=== PATIENT | male | born 1975 ===

== ENCOUNTER 2017-01-16 11:52 | Inpatient (IN) | payer OTHER ==
[2017-01-16 12:11] VITALS: BMI 38.4
--- NOTE | 2017-01-16 12:28 | C.PDOC ---
History Of Present Illness 41 year old patient, with a past medical history of asthma, CAD, hypertension, depression, and anxiety, presents to the ED complaining of intermittent chest pain for the last couple of days. Patient states the pain is radiaitng to his left arm. Patient denies having any exacerbating factors. Patient also complains of intermittent shortness of breath and some nausea. He notes this pain is similar to his previous [place]. Patient denies fever, chills, palpitations, numbness, weakness, or vomiting. Time Seen by Provider: 01/16/17 12:28 Chief Complaint (Nursing): Chest Pain History Per: Patient History/Exam Limitations: no limitations Onset/Duration Of Symptoms: Days (couple of days) Current Symptoms Are (Timing): Still Present Context: Other Severity: Mild Pain Scale Rating Of: 3 Quality: "Pain" Associated Symptoms: Nausea Exacerbating Factors: None Alleviating Factors: None Recent travel outside of the [place]: No Past Medical History Reviewed: Historical Data, Nursing Documentation, Vital Signs Vital Signs: Last Vital Signs Temp 97.7 F 01/17/17 16:57 Pulse 65 01/17/17 16:57 Resp 20 01/17/17 16:57 BP 124/74 01/17/17 17:35 Pulse Ox 95 01/17/17 16:57 - Medical History PMH: Anxiety, Asthma, CAD, Depression, HTN - [facility] Procedures CORONAR ARTERIOGR-2 CATH (03/12/15) CORONARY ARTERIOGRAM NEC (03/16/15) LEFT HEART CARDIAC CATH (03/12/15) LT HEART ANGIOCARDIOGRAM (03/12/15) Family History: States: Unknown Family Hx - Social History Hx Tobacco Use: Yes (half pack daily) Hx Alcohol Use: No Hx Substance Use: No - Immunization History Hx Tetanus Toxoid Vaccination: Yes Hx Influenza Vaccination: Yes Hx Pneumococcal Vaccination: Yes Review Of Systems Except As Marked, All Systems Reviewed And Found Negative. Constitutional: Negative for: Fever, Chills Cardiovascular: Positive for: Chest Pain. Negative for: Palpitations Respiratory: Positive for: Shortness of Breath Gastrointestinal: Positive for: Nausea. Negative for: Vomiting Musculoskeletal: Positive for: Arm Pain (left arm) Neurological: Negative for: Weakness, Numbness Physical Exam - Physical Exam Appears: Non-toxic, No Acute Distress Skin: Warm, Dry Head: Atraumatic, Normacephalic Oral Mucosa: Moist Neck: Normal ROM, Supple Chest: Symmetrical Cardiovascular: Rhythm Regular Respiratory: Normal Breath Sounds, No Rales, No Rhonchi, No Wheezing Gastrointestinal/Abdominal: Soft, No Tenderness Back: Normal Inspection, No CVA Tenderness Extremity: Normal ROM Neurological/Psych: Oriented x3, Normal Speech, Normal Cognition, Normal Motor, Normal Sensation Gait: Steady ED Course And Treatment - Laboratory Results Result Diagrams: 01/17/17 11:26 01/17/17 11:26 O2 Sat by Pulse Oximetry: 98 (room air) Pulse Ox Interpretation: Normal Medical Decision Making Medical Decision Making: Plan: * EKG * Labs * Chest x-ray * Aspirin EKG: Interpreted by me Normal sinus rhythm 70 bpm Left axis deviation No acute ischemia Chest x-ray Read by Radiologist: Judy Martinez MD HISTORY: cp COMPARISON: Chest x-ray performed 03/13/16 TECHNIQUE: Chest, one view. FINDINGS: Examination limited by habitus and hypoinflation. LUNGS: No focal consolidation. Please note that chest x-ray has limited sensitivity for the detection of pulmonary masses. PLEURA: No significant pleural effusion identified. No definite pneumothorax . CARDIOVASCULAR: Heart size appears top normal. OSSEOUS STRUCTURES: No acute osseous abnormality identified. VISUALIZED UPPER ABDOMEN: Unremarkable. OTHER FINDINGS: None. IMPRESSION: No focal consolidation, significant pleural effusion, or definite pneumothorax identified. Disposition - Disposition Disposition: HOSPITALIZED Disposition Time: 14:49 Condition: STABLE - Clinical Impression Clinical Impression: Chest pain - Scribe Statement The provider has reviewed the documentation as recorded by the Nicholeibe Lizbet Horton Provider Attestation: All medical record entries made by the Nicholeibjohn were at my direction and personally dictated by me. I have reviewed the chart and agree that the record accurately reflects my personal performance of the history, physical exam, medical decision making, and the department course for this patient. I have also personally directed, reviewed, and agree with the discharge instructions and disposition.
--- NOTE | 2017-01-16 12:50 | RAD ---
HISTORY: cp COMPARISON: Chest x-ray performed 03/13/16 TECHNIQUE: Chest, one view. FINDINGS: Examination limited by habitus and hypoinflation. LUNGS: No focal consolidation. Please note that chest x-ray has limited sensitivity for the detection of pulmonary masses. PLEURA: No significant pleural effusion identified. No definite pneumothorax . CARDIOVASCULAR: Heart size appears top normal. OSSEOUS STRUCTURES: No acute osseous abnormality identified. VISUALIZED UPPER ABDOMEN: Unremarkable. OTHER FINDINGS: None. IMPRESSION: No focal consolidation, significant pleural effusion, or definite pneumothorax identified.
[2017-01-16 13:28] LABS: CHLORIDE 102 mmol/L (98-107)
[2017-01-16 13:29] LABS: POTASSIUM 4.2 mmol/L (3.6-5.2); SODIUM 136 mmol/L (132-148)
[2017-01-16 13:31] LABS: ALB/GLOB RATIO 1.2 (1.0-2.1); ALKALINE PHOSPHATASE 71 U/L (38-126); AST/SGOT 33 U/L (17-59); BILIRUBIN,TOTAL 0.6 mg/dL (0.2-1.3); BLOOD UREA NITROGEN 11 mg/dL (9-20); CARBON DIOXIDE 22 mmol/L (22-30); GFR AFRICAN-AMERICAN > 60; TOTAL PROTEIN 7.1 g/dL (6.3-8.3)
[2017-01-16 13:32] LABS: ALT/SGPT 24 U/L (21-72); GLUCOSE,RANDOM 115 mg/dL (75-110)
[2017-01-16 14:06] LABS: BASO # 0.1 K/uL (0.0-0.2); BASO % 0.9 % (0.0-2.0); EOS # 0.6 K/uL (0.0-0.7); EOS % 4.1 % (0.0-4.0); HEMATOCRIT 48.9 % (35.0-51.0); LYMPH # 4.1 K/uL (1.0-4.3); LYMPH % 27.4 % (20.0-40.0); MEAN CELL VOLUME 84.6 fL (80.0-94.0); MEAN CORPUSCULAR HEMOGLOBIN 28.6 pg (27.0-31.0); MEAN CORPUSCULAR HGB CONC 33.8 g/dL (33.0-37.0); MEAN PLATELET VOLUME 8.1 fL (7.2-11.7); MONO # 1.1 K/uL (0.0-0.8); MONO % 7.6 % (0.0-10.0); RED CELL DISTRIBUTION WIDTH 13.6 % (11.5-14.5); WHITE BLOOD COUNT 14.9 K/uL (4.8-10.8)
--- NOTE | 2017-01-16 15:48 | CP.PCM.HP ---
<Derik Carvalho - Last Filed: 01/16/17 16:06> History of Present Illness - History of Present Illness History of Present Illness: This is a 41 yo male with past medical hx of HTN, DM, CAD, HLD, CA presenting with chest pain x 2-3 days. Pain was getting worse in intensity and pain began radiating to jaw and left arm so that is why pt came in today. He rates it 6/10 , similar to pain he has had in past when he had CA. He describes it as pressure sensation. Pain is constant. He had cardiac cath in past but did not have stent placed due to technical issue. He doesn't say anything makes it worse , but the medicine he got in ER has made it somewhat better. He denies fevers, chills, nausea vomiting, cough, dysuria, hematuria, abdominal pain, diarrhea, constipation, hematochezia. PMH: DM, HTN, HLD, CAD PSH: Cardiac cath Allergies: NKDA Current meds: metformin, januvia, atenolol, losartan, lipitor FH: Denies Social hx: Current smoker- 7-10 cigs/day. No drinking. No drugs. Lives with mother. Present on Admission - Present on Admission Any Indicators Present on Admission: No History of DVT/PE: No History of Uncontrolled Diabetes: No Urinary Catheter: No Decubitus Ulcer Present: No Review of Systems - Review of Systems All systems: reviewed and no additional remarkable complaints except Review of Systems: negative except per hpi. Past Patient History - Infectious Disease Hx of Infectious Diseases: None - Tetanus Immunizations Tetanus Immunization: Unknown - Past Medical History & Family History Past Medical History?: Yes Past Family History: Reviewed and not pertinent - Past Social History Smoking Status: Light Smoker < 10 Cigarettes Daily Chewing Tobacco Use: No Cigar Use: No Alcohol: None Drugs: Denies Home Situation {Lives}: With Family Domestic Violence: Negative - CARDIAC Hx Hypertension: Yes - PULMONARY Hx Asthma: Yes - NEUROLOGICAL Hx Neurological Disorder: No - HEENT Hx HEENT Problems: No - RENAL Hx Chronic Kidney Disease: No - ENDOCRINE/METABOLIC Hx Endocrine Disorders: Yes Hx Diabetes Mellitus Type 2: Yes - HEMATOLOGICAL/ONCOLOGICAL Hx Blood Disorders: No - INTEGUMENTARY Hx Dermatological Problems: No - MUSCULOSKELETAL/RHEUMATOLOGICAL Hx Falls: No - GASTROINTESTINAL Hx Gastrointestinal Disorders: No - GENITOURINARY/GYNECOLOGICAL Hx Genitourinary Disorders: No - PSYCHIATRIC Hx Anxiety: Yes Hx Depression: Yes Hx Substance Use: No - SURGICAL HISTORY Hx Surgeries: Yes Hx Cardiac Catheterization: Yes (last week) Other/Comment: foot surgery (due to accident at 12 yrs old) - ANESTHESIA Hx Anesthesia: Yes Hx Anesthesia Reactions: No Hx Malignant Hyperthermia: No Meds Allergies/Adverse Reactions: Allergies Allergy/AdvReac Type Severity Reaction Status Date / Time pollen extracts Allergy Verified 01/16/17 12:10 Physical Exam - Constitutional Appears: Non-toxic, No Acute Distress - Head Exam Head Exam: ATRAUMATIC, NORMAL INSPECTION, NORMOCEPHALIC - Eye Exam Eye Exam: EOMI - ENT Exam ENT Exam: Mucous Membranes Moist - Neck Exam Neck exam: Positive for: Full Rom Additional comments: Minimal jvd - Respiratory Exam Respiratory Exam: NORMAL BREATHING PATTERN. absent: Respiratory Distress - Cardiovascular Exam Cardiovascular Exam: REGULAR RHYTHM, +S1, +S2 - GI/Abdominal Exam GI & Abdominal Exam: Normal Bowel Sounds, Soft. absent: Tenderness - Extremities Exam Extremities exam: Positive for: full ROM, normal inspection - Back Exam Back exam: NORMAL INSPECTION - Neurological Exam Neurological exam: Alert, CN II-XII Intact, Oriented x3 - Psychiatric Exam Psychiatric exam: Normal Affect, Normal Mood - Skin Skin Exam: Dry, Intact, Normal Color, Warm Results - Vital Signs Recent Vital Signs: Last Vital Signs Temp 98.4 F 01/16/17 12:17 Pulse 76 01/16/17 12:58 Resp 16 01/16/17 12:58 BP 122/77 01/16/17 12:58 Pulse Ox 98 01/16/17 13:43 - Labs Result Diagrams: 01/16/17 13:57 01/16/17 13:11 Assessment & Plan - Assessment and Plan (Free Text) Assessment: This is a 41 yo male with past medical hx of DM, HTN, HLD, CAD presenting with cc of chest pain 1. Unstable angina -morphine 2 mg IV q 3 hrs prn pain -o2 by nasal cannula -trops x 3, 1st one negative -cardio consult. Dr. Sutherland. reckatrin appreciated. -asa 81 daily -therapeutic lovenox -restart home lipitor -continue home atenolol -continue home losartan -TSH/T3/T4 -BNP pending -CXR pa/lateral pending -EKG shows NSR, poor r wave progression, no st elevations, depressions 2. Hx of HTN -continue home atenolol -continue losartan 3. hx of DM -ISS -HGB A1C 4. Hx of HLD -continue home lipitor -lipid profile 5. GI/DVT ppx -protonix daily -lovenox 118 mg sc bid discussed with Dr. Acosta <Rob Acosta - Last Filed: 01/17/17 08:50> Results - Vital Signs Recent Vital Signs: Last Vital Signs Temp 97.9 F 01/17/17 00:00 Pulse 68 01/17/17 04:00 Resp 20 01/17/17 00:00 BP 116/72 01/17/17 00:00 Pulse Ox 96 01/17/17 00:00 - Labs Result Diagrams: 01/16/17 13:57 01/16/17 13:11 Labs: Laboratory Results - last 24 hr 01/16/17 01/16/17 01/16/17 17:29 17:29 17:29 PT INR APTT D-Dimer, Quantitative POC Glucose (mg/dL) Troponin I < 0.0120 NT-Pro-B Natriuret Pep 213 Procalcitonin < 0.05 L Free T4 Total T3 2.42 TSH 3rd Generation 1.22 01/16/17 01/16/17 01/16/17 17:29 17:43 18:23 PT 11.8 INR 1.0 APTT 32 D-Dimer, Quantitative Cancelled POC Glucose (mg/dL) 102 Troponin I NT-Pro-B Natriuret Pep Procalcitonin Free T4 0.86 Total T3 TSH 3rd Generation 01/16/17 01/17/17 01/17/17 21:17 01:20 04:22 PT INR APTT D-Dimer, Quantitative < 200 POC Glucose (mg/dL) 147 H Troponin I < 0.0120 NT-Pro-B Natriuret Pep Procalcitonin Free T4 Total T3 TSH 3rd Generation 01/17/17 06:34 PT INR APTT D-Dimer, Quantitative POC Glucose (mg/dL) 130 H Troponin I NT-Pro-B Natriuret Pep Procalcitonin Free T4 Total T3 TSH 3rd Generation Attending/Attestation - Attestation I have personally seen and examined this patient.: Yes I have fully participated in the care of the patient.: Yes I have reviewed all pertinent clinical information: Yes Notes (Text): 01/17/17 08:47 Medical Attending: Patient was seen and examined by me. Agree with the above note by the resident. Patient does have an extensive cardiac history as well as risk factors including : HTN, DM, and is an active smoker despite his history of CA at earlier age. Will check ECHO and also additional cardiac enzymes. The patient will need to be on statin, ASA, HTN medicatiom, and for now will start lovenox BID Rob acosta
--- NOTE | 2017-01-16 16:40 | CP.PCM.CON ---
Addendum entered and electronically signed by CassiaMadisyn, DO 01/16/17 17:37 : Pending BNP Will give lasix 40 iv bid Echo pending Obtain D-dimer, coags Consider pulm consult S/R/D/w Dr. Sutherland Original Note: <CassiaMadisyn - Last Filed: 01/16/17 17:23> History of Present Illness - History of Present Illness History of Present Illness: PGY-[address] Sutherland Cardiology Consult: 41 yo male, active smoker, with PMHx of HTN, HLD, DM, IL/CAD, triple vessel disease s/p PCI, COPD/Asthma, presenting with chest pain x 2-3 days. Pt recently started to exercises by walking a mile a day x 5 days/week. No chest pain on exertion but (+) SOB on exertion. This weekend, while pt was at rest, he had several episodes of chest pain, 4/10 , pressure-like, @ episodes lasting about 2 hrs. This AM, the pain was getting worse in intensity, 6/10, and radiates to jaw and left arm, associated with diaphoresis, nausea and dyspnea. The pain was similar to the pain he has had in past when he had IL. Message, reposition, failed to alleviates it. He had cardiac cath in past but did not have stent placed due to technical issue. He was scheduled for open heart CABG but required total tooth extraction , which insurance denied. Then pt traveled out of [facility] to [place], [place], and seen a sales account associate there who would re-attempt PCI but pt lost insurance again. At baseline, pt denies swelling. Pt uses 2 pillows, able to walk 3 flight of stairs, eat healthy. On ER arrival, VSS WBC = 15. GFR > 60. LFT wnl. BNP pending. Trop negative x 1. EKG: NS @ 73. L axis deviation. TWI in III, q wave in aVR (QTc 475) CXR (noon, 4pm) mild venous encephalization. fluid overload ASA 325 given at ED has made it somewhat better. ROS - Denies fevers, chills, nausea vomiting, cough, dysuria, hematuria, abdominal pain, diarrhea, constipation, hematochezia. PMH: CAD (triple vessel) - LAD (100% stenose), L-cir (obtuse marginal 98% stenose), RCA (dominant, mid=60%; PDA mid=95% stenose) DM x 3 years HTN, HLD, Asthma/COPD PSH: Foot surgery as child Cardiac cath (02/2015) FH: Mom with asthma Social hx: Current smoker- 1/2ppd x 26 yrs. No drinking. No drugs. Lives with mother. Allergies: NKDA. Pollen Current meds: ASA 81, metformin, januvia, atenolol, losartan, lipitor PMD: Dr. Magda Scott Past Patient History - Infectious Disease Hx of Infectious Diseases: None - Tetanus Immunizations Tetanus Immunization: Unknown - Past Medical History & Family History Past Medical History?: Yes Past Family History: Reviewed and not pertinent - Past Social History Smoking Status: Light Smoker < 10 Cigarettes Daily Chewing Tobacco Use: No Cigar Use: No Alcohol: None Drugs: Denies Home Situation {Lives}: With Family Domestic Violence: Negative - CARDIAC Hx Hypertension: Yes - PULMONARY Hx Asthma: Yes - NEUROLOGICAL Hx Neurological Disorder: No - HEENT Hx HEENT Problems: No - RENAL Hx Chronic Kidney Disease: No - ENDOCRINE/METABOLIC Hx Endocrine Disorders: Yes Hx Diabetes Mellitus Type 2: Yes - HEMATOLOGICAL/ONCOLOGICAL Hx Blood Disorders: No - INTEGUMENTARY Hx Dermatological Problems: No - MUSCULOSKELETAL/RHEUMATOLOGICAL Hx Falls: No - GASTROINTESTINAL Hx Gastrointestinal Disorders: No - GENITOURINARY/GYNECOLOGICAL Hx Genitourinary Disorders: No - PSYCHIATRIC Hx Anxiety: Yes Hx Depression: Yes Hx Substance Use: No - SURGICAL HISTORY Hx Surgeries: Yes Hx Cardiac Catheterization: Yes (last week) Other/Comment: foot surgery (due to accident at 12 yrs old) - ANESTHESIA Hx Anesthesia: Yes Hx Anesthesia Reactions: No Hx Malignant Hyperthermia: No Meds Allergies/Adverse Reactions: Allergies Allergy/AdvReac Type Severity Reaction Status Date / Time pollen extracts Allergy Verified 01/16/17 12:10 - Medications Medications: Current Medications Aspirin (Ecotrin) 81 mg PO DAILY [facility] Atenolol (Tenormin) 25 mg PO DAILY [facility] Enoxaparin Sodium (Lovenox) 118 mg SC Q12 [facility] Home Med (Atorvastatin [Lipitor]) 20 mg PO DAILY [facility] Insulin Human Regular (Novolin R) 0 unit SC ACHS [facility] PRN Reason: Protocol Losartan Potassium (Cozaar) 2 mg PO DAILY [facility] Morphine Sulfate (Morphine) 2 mg IV Q3 PRN PRN Reason: Pain, moderate (4-7) Pantoprazole Sodium (Protonix Inj) 40 mg IVP DAILY [facility] Physical Exam - Constitutional Appears: Older Than Stated Age - Head Exam Head Exam: ATRAUMATIC, NORMOCEPHALIC - Eye Exam Eye Exam: EOMI, Normal appearance, PERRL Pupil Exam: NORMAL ACCOMODATION - ENT Exam ENT Exam: Mucous Membranes Moist - Neck Exam Neck exam: Positive for: Normal Inspection - Respiratory Exam Respiratory Exam: Decreased Breath Sounds (L mid lobe), Clear to Auscultation Bilateral, NORMAL BREATHING PATTERN. absent: Rales, Rhonchi, Wheezes - Cardiovascular Exam Cardiovascular Exam: REGULAR RHYTHM, +S1, +S2. absent: Systolic Murmur - GI/Abdominal Exam GI & Abdominal Exam: Normal Bowel Sounds, Soft. absent: Distended, Firm, Guarding, Tenderness - Extremities Exam Extremities exam: Positive for: normal capillary refill, pedal edema (mild), pedal pulses present. Negative for: calf tenderness - Back Exam Back exam: absent: CVA tenderness (L), CVA tenderness (R) - Neurological Exam Neurological exam: Alert, Oriented x3 - Psychiatric Exam Psychiatric exam: Normal Affect, Normal Mood - Skin Skin Exam: Diaphoretic, Warm Results - Vital Signs Recent Vital Signs: Last Vital Signs Temp 98.4 F 01/16/17 12:17 Pulse 74 01/16/17 15:46 Resp 18 01/16/17 15:46 BP 119/81 01/16/17 15:46 Pulse Ox 96 01/16/17 15:46 - Labs Result Diagrams: 01/16/17 13:57 01/16/17 13:11 Assessment & Plan - Assessment and Plan (Free Text) Plan: 41 yo male, active smoker, with PMHx of HTN, HLD, DM, IL/CAD, triple vessel disease s/p PCI, COPD/Asthma, presenting with chest pain x 2-3 days. Chest Pain r/o ACS r/o CHF r/o cardiomyopathy - Trend cardiac enzymes - Tele monitor - AM EKG - Echo tomorrow CAD s/p PCI - - Pending A1c, tsh, lipid L-axis deviation on EKG - Goal BP control < 140/90 DM2 - goal A1C < 6.5 Will s/r/d/w Dr. Sutherland - Date & Time Date: 01/16/17 Time: 17:21 <Gregorio Sutherland Last Filed: 01/17/17 07:27> Meds - Medications Medications: Current Medications Aspirin (Ecotrin) 81 mg PO DAILY [facility] Atenolol (Tenormin) 25 mg PO DAILY [facility] Enoxaparin Sodium (Lovenox) 118 mg SC Q12 [facility] Last Admin: 01/16/17 22:56 Dose: 118 mg Furosemide (Lasix) 40 mg IVP BID [facility] Home Med (Atorvastatin [Lipitor]) 20 mg PO DAILY [facility] Insulin Human Regular (Novolin R) 0 unit SC ACHS [facility] PRN Reason: Protocol Last Admin: 01/16/17 21:57 Dose: Not Given Losartan Potassium (Cozaar) 2 mg PO DAILY [facility] Morphine Sulfate (Morphine) 2 mg IV Q3 PRN PRN Reason: Pain, moderate (4-7) Pantoprazole Sodium (Protonix Inj) 40 mg IVP DAILY [facility] Last Admin: 01/16/17 17:55 Dose: 40 mg Results - Vital Signs Recent Vital Signs: Last Vital Signs Temp 97.9 F 01/17/17 00:00 Pulse 68 01/17/17 04:00 Resp 20 01/17/17 00:00 BP 116/72 01/17/17 00:00 Pulse Ox 96 01/17/17 00:00 - Labs Result Diagrams: 01/16/17 13:57 01/16/17 13:11 Labs: Laboratory Results - last 24 hr 01/16/17 01/16/17 01/16/17 17:29 17:29 17:29 PT INR APTT D-Dimer, Quantitative POC Glucose (mg/dL) Troponin I < 0.0120 NT-Pro-B Natriuret Pep 213 Procalcitonin < 0.05 L Free T4 Total T3 2.42 TSH 3rd Generation 1.22 01/16/17 01/16/17 01/16/17 17:29 17:43 18:23 PT 11.8 INR 1.0 APTT 32 D-Dimer, Quantitative Cancelled POC Glucose (mg/dL) 102 Troponin I NT-Pro-B Natriuret Pep Procalcitonin Free T4 0.86 Total T3 TSH 3rd Generation 01/16/17 01/17/17 01/17/17 21:17 01:20 04:22 PT INR APTT D-Dimer, Quantitative < 200 POC Glucose (mg/dL) 147 H Troponin I < 0.0120 NT-Pro-B Natriuret Pep Procalcitonin Free T4 Total T3 TSH 3rd Generation 01/17/17 06:34 PT INR APTT D-Dimer, Quantitative POC Glucose (mg/dL) 130 H Troponin I NT-Pro-B Natriuret Pep Procalcitonin Free T4 Total T3 TSH 3rd Generation Assessment & Plan - Assessment and Plan (Free Text) Assessment: Patient seen and evaluated with the medical engineer and plan of care as per the notes
[2017-01-16] MEDS: (Novolin R) Insulin Human Regular 100 units/ml vial SC SCH ×2 (17:46→21:57)
[2017-01-16 18:25] LABS: THYROID STIMULATING HORMONE 1.22 mIU/L (0.46-4.68)
--- NOTE | 2017-01-16 18:37 | RAD ---
HISTORY: chest pain COMPARISON: Chest x-ray performed 01/16/17 at 1240 hours TECHNIQUE: Chest PA and lateral FINDINGS: Examination limited by habitus and hypoinflation. LUNGS: No focal consolidation. Please note that chest x-ray has limited sensitivity for the detection of pulmonary masses. PLEURA: No significant pleural effusion identified. No definite pneumothorax . CARDIOVASCULAR: Heart size appears within normal limits. OSSEOUS STRUCTURES: Mild degenerative changes. VISUALIZED UPPER ABDOMEN: Elevation of the right hemidiaphragm. OTHER FINDINGS: None. IMPRESSION: No focal consolidation, significant pleural effusion, or definite pneumothorax identified.
[2017-01-16] MEDS ORDERED: Enoxaparin 100 mg Syringe SC SCH (22:00)
[2017-01-17] MEDS: (Novolin R) Insulin Human Regular 100 units/ml vial SC SCH ×4 (07:57→22:14)
[2017-01-17] MEDS ORDERED: Home Med 1 UNIT (Atorvastatin [Lipitor] 20 MG) PO SCH (10:00)
[2017-01-17] MEDS: Enoxaparin 120 mg Syringe SC SCH ×2 (10:31→22:13)
[2017-01-17 11:35] LABS: BASO # 0.1 K/uL (0.0-0.2); EOS # 0.4 K/uL (0.0-0.7); EOS % 2.8 % (0.0-4.0); HEMATOCRIT 48.5 % (35.0-51.0); LYMPH # 4.7 K/uL (1.0-4.3); LYMPH % 36.2 % (20.0-40.0); MEAN CELL VOLUME 83.7 fL (80.0-94.0); MEAN CORPUSCULAR HEMOGLOBIN 27.8 pg (27.0-31.0); MEAN CORPUSCULAR HGB CONC 33.2 g/dL (33.0-37.0); MEAN PLATELET VOLUME 8.3 fL (7.2-11.7); MONO # 0.8 K/uL (0.0-0.8); MONO % 6.1 % (0.0-10.0); RED CELL DISTRIBUTION WIDTH 13.4 % (11.5-14.5); WHITE BLOOD COUNT 12.9 K/uL (4.8-10.8)
[2017-01-17 11:42] LABS: CHLORIDE 100 mmol/L (98-107); POTASSIUM 3.8 mmol/L (3.6-5.2); SODIUM 136 mmol/L (132-148)
[2017-01-17 11:44] LABS: ALB/GLOB RATIO 1.3 (1.0-2.1); AST/SGOT 26 U/L (17-59); BILIRUBIN,TOTAL 0.9 mg/dL (0.2-1.3); BLOOD UREA NITROGEN 13 mg/dL (9-20); CARBON DIOXIDE 26 mmol/L (22-30); CHOLESTEROL 137 mg/dL (0-199); GFR AFRICAN-AMERICAN > 60; TOTAL PROTEIN 7.6 g/dL (6.3-8.3)
[2017-01-17 11:45] LABS: ALKALINE PHOSPHATASE 71 U/L (38-126); ALT/SGPT 30 U/L (21-72); CALCIUM 9.1 mg/dl (8.6-10.4); GLUCOSE,RANDOM 138 mg/dL (75-110); MAGNESIUM 1.7 mg/dL (1.6-2.3); PHOSPHOROUS 3.5 mg/dL (2.5-4.5)
--- NOTE | 2017-01-17 12:29 | CP.PCM.PN ---
<Derik Carvalho - Last Filed: 01/17/17 12:31> Subjective - Date & Time of Evaluation Date of Evaluation: 01/17/17 Time of Evaluation: 12:25 - Subjective Subjective: Med progress note. Attending: Dr. Alfonso Pt seen and examined at bedside. No acute distress. No events overnight. Trops negative x 3. Awaiting input from cardiology regarding stress test. CP resolved. Denies fevers, chills, vomiting, diarrhea, syncope. Objective - Vital Signs/Intake and Output Vital Signs (last 24 hours): Temp Pulse Resp BP Pulse Ox 97.5 F L 63 20 119/78 96 01/17/17 07:00 01/17/17 07:00 01/17/17 07:00 01/17/17 10:09 01/17/17 07:00 Intake and Output: 01/17/17 01/17/17 06:59 18:59 Intake Total 240 Balance 240 - Medications Medications: Current Medications Aspirin (Ecotrin) 81 mg PO DAILY [facility] Last Admin: 01/17/17 10:07 Dose: 81 mg Atenolol (Tenormin) 25 mg PO DAILY [facility] Last Admin: 01/17/17 10:07 Dose: 25 mg Enoxaparin Sodium (Lovenox) 118 mg SC Q12 [facility] Last Admin: 01/17/17 10:31 Dose: 118 mg Furosemide (Lasix) 40 mg IVP BID [facility] Last Admin: 01/17/17 10:09 Dose: 40 mg Insulin Human Regular (Novolin R) 0 unit SC ACHS [facility] PRN Reason: Protocol Last Admin: 01/17/17 07:57 Dose: Not Given Losartan Potassium (Cozaar) 50 mg PO DAILY [facility] Last Admin: 01/17/17 10:34 Dose: 50 mg Morphine Sulfate (Morphine) 2 mg IV Q3 PRN PRN Reason: Pain, moderate (4-7) Pantoprazole Sodium (Protonix Inj) 40 mg IVP DAILY [facility] Last Admin: 01/17/17 10:09 Dose: 40 mg Rosuvastatin Calcium (Crestor) 10 mg PO HS [facility] - Labs Labs: 01/17/17 11:26 01/17/17 11:26 PT 11.8 SECONDS (9.7-12.2) 01/16/17 18:23 INR 1.0 01/16/17 18:23 APTT 32 SECONDS (21-34) 01/16/17 18:23 - Constitutional Appears: Non-toxic, No Acute Distress - Head Exam Head Exam: ATRAUMATIC, NORMAL INSPECTION, NORMOCEPHALIC - Eye Exam Eye Exam: EOMI - ENT Exam ENT Exam: Mucous Membranes Moist - Neck Exam Neck Exam: Full ROM, Normal Inspection - Respiratory Exam Respiratory Exam: NORMAL BREATHING PATTERN. absent: Respiratory Distress - Cardiovascular Exam Cardiovascular Exam: +S1, +S2 - GI/Abdominal Exam GI & Abdominal Exam: Soft, Normal Bowel Sounds. absent: Tenderness - Extremities Exam Extremities Exam: Full ROM, Normal Inspection - Back Exam Back Exam: NORMAL INSPECTION - Neurological Exam Neurological Exam: Alert, Awake, Oriented x3 - Psychiatric Exam Psychiatric exam: Normal Affect, Normal Mood - Skin Skin Exam: Dry, Intact, Normal Color, Warm Assessment and Plan - Assessment and Plan (Free Text) Assessment: This is a 41 yo male with past medical hx of DM, HTN, HLD, CAD presenting with cc of chest pain 1. Unstable angina -morphine 2 mg IV q 3 hrs prn pain -o2 by nasal cannula as needed -trops negative x 3 -cardio consult. Dr. Sutherland. recs appreciated. -asa 81 daily -therapeutic lovenox -restart home lipitor>>> changed to crestor 10 mg po hs -continue home atenolol 25 mg po daily -continue home losartan 50 mg po daily -TSH wnl -BNP pending -CXR pa/lateral negative -EKG shows NSR, poor r wave progression, no st elevations, depressions -echo pending -cardiology workup in progress, pt may go for stress test. 2. Hx of HTN -continue home atenolol 25 mg po daily -continue losartan 50 mg po daily 3. hx of DM -ISS -HGB A1C pending 4. Hx of HLD -continue home lipitor>>> changed to crestor 10 mg po hs -lipid profile 5. tobacco abuse -pt counselled multiple times on need to stop smoking. pt is aware of risks but feels he cannot stop. 6. GI/DVT ppx -protonix daily -lovenox 118 mg sc bid discussed with Dr. Alfonso <Rob Alfonso - Last Filed: 01/18/17 07:47> Objective - Vital Signs/Intake and Output Vital Signs (last 24 hours): Temp Pulse Resp BP Pulse Ox 98.1 F 73 20 116/73 99 01/18/17 00:00 01/18/17 00:00 01/18/17 00:00 01/18/17 00:00 01/18/17 00:00 - Medications Medications: Current Medications Aspirin (Ecotrin) 81 mg PO DAILY [facility] Last Admin: 01/17/17 10:07 Dose: 81 mg Atenolol (Tenormin) 25 mg PO DAILY [facility] Last Admin: 01/17/17 10:07 Dose: 25 mg Enoxaparin Sodium (Lovenox) 118 mg SC Q12 [facility] Last Admin: 01/17/17 22:13 Dose: 118 mg Furosemide (Lasix) 40 mg IVP BID [facility] Last Admin: 01/17/17 17:35 Dose: 40 mg Insulin Human Regular (Novolin R) 0 unit SC ACHS [facility] PRN Reason: Protocol Last Admin: 01/18/17 07:13 Dose: Not Given Losartan Potassium (Cozaar) 50 mg PO DAILY [facility] Last Admin: 01/17/17 10:34 Dose: 50 mg Morphine Sulfate (Morphine) 2 mg IV Q3 PRN PRN Reason: Pain, moderate (4-7) Pantoprazole Sodium (Protonix Inj) 40 mg IVP DAILY [facility] Last Admin: 01/17/17 10:09 Dose: 40 mg Rosuvastatin Calcium (Crestor) 20 mg PO HS [facility] - Labs Labs: 01/18/17 07:06 01/17/17 11:26 PT 11.8 SECONDS (9.7-12.2) 01/16/17 18:23 INR 1.0 01/16/17 18:23 APTT 32 SECONDS (21-34) 01/16/17 18:23 Attending/Attestation - Attestation I have personally seen and examined this patient.: Yes I have fully participated in the care of the patient.: Yes I have reviewed all pertinent clinical information, including history, physical exam and plan: Yes Notes (Text): 01/18/17 07:40 Medical attending: Patient was seen and examined by me, agrees the above note by neuropsychology medical consultant. The patient reported that the pain seemed to be improved. At this time the patient is pending a stress test, as well as pending at 2-D echo. The cardiac enzymes were negative overnight. We again had a very long discussion with regards to the patient's smoking history Thank you very much, Rob Alfonso
--- NOTE | 2017-01-17 13:51 | CP.PCM.PN ---
<CassiaMadisyn - Last Filed: 01/17/17 13:49> Subjective - Date & Time of Evaluation Date of Evaluation: 01/17/17 Time of Evaluation: 13:49 - Subjective Subjective: PGY1- for Dr. Sutherland Pt seen and examined. No more chest pain overnight. Objective - Vital Signs/Intake and Output Vital Signs (last 24 hours): Temp Pulse Resp BP Pulse Ox 97.5 F L 63 20 119/78 96 01/17/17 07:00 01/17/17 07:00 01/17/17 07:00 01/17/17 10:09 01/17/17 07:00 Intake and Output: 01/17/17 01/17/17 06:59 18:59 Intake Total 240 Balance 240 - Medications Medications: Current Medications Aspirin (Ecotrin) 81 mg PO DAILY [facility] Last Admin: 01/17/17 10:07 Dose: 81 mg Atenolol (Tenormin) 25 mg PO DAILY [facility] Last Admin: 01/17/17 10:07 Dose: 25 mg Enoxaparin Sodium (Lovenox) 118 mg SC Q12 [facility] Last Admin: 01/17/17 10:31 Dose: 118 mg Furosemide (Lasix) 40 mg IVP BID [facility] Last Admin: 01/17/17 10:09 Dose: 40 mg Insulin Human Regular (Novolin R) 0 unit SC ACHS [facility] PRN Reason: Protocol Last Admin: 01/17/17 07:57 Dose: Not Given Losartan Potassium (Cozaar) 50 mg PO DAILY [facility] Last Admin: 01/17/17 10:34 Dose: 50 mg Morphine Sulfate (Morphine) 2 mg IV Q3 PRN PRN Reason: Pain, moderate (4-7) Pantoprazole Sodium (Protonix Inj) 40 mg IVP DAILY [facility] Last Admin: 01/17/17 10:09 Dose: 40 mg Rosuvastatin Calcium (Crestor) 10 mg PO HS [facility] - Labs Labs: 01/17/17 11:26 01/17/17 11:26 PT 11.8 SECONDS (9.7-12.2) 01/16/17 18:23 INR 1.0 01/16/17 18:23 APTT 32 SECONDS (21-34) 01/16/17 18:23 - Constitutional Appears: No Acute Distress - Head Exam Head Exam: ATRAUMATIC, NORMOCEPHALIC - Eye Exam Eye Exam: EOMI, Normal appearance, PERRL - ENT Exam ENT Exam: Mucous Membranes Moist - Neck Exam Neck Exam: Normal Inspection - Respiratory Exam Respiratory Exam: Clear to Ausculation Bilateral. absent: Rales, Rhonchi, Wheezes - Cardiovascular Exam Cardiovascular Exam: REGULAR RHYTHM, +S1, +S2. absent: Murmur - GI/Abdominal Exam GI & Abdominal Exam: Soft. absent: Guarding, Rigid, Tenderness - Extremities Exam Extremities Exam: Normal Capillary Refill, Pedal Edema (slight). absent: Calf Tenderness - Back Exam Back Exam: absent: CVA tenderness (L), CVA tenderness (R) - Neurological Exam Neurological Exam: Alert, Awake, Oriented x3 - Psychiatric Exam Psychiatric exam: Normal Affect, Normal Mood - Skin Skin Exam: Dry, Warm Assessment and Plan - Assessment and Plan (Free Text) Plan: 41 M, active smoker, with PMHx of HTN, HLD, DM, [place]/CAD, triple vessel disease s/ p PCI, COPD/Asthma, presenting with chest pain at rest x 2-3 days. Pt recently started exercise by walking a miles 5 days / week Unstable angina Chest Pain - resolved r/o CHF r/o ischemic cardiomyopathy - trops negative x 3 - Therapeutic lovenox per primary team - Pending AM EKG - Echo Pending official read - Exercise stress test with myoperfusion - lasix 40 IV BID CAD s/p PCI - Consider high dose statin such as crestor 20 L-axis deviation on EKG - Goal BP control < 140/90 DM2, A1C 6.6 - goal A1C < 6.5 Tobacco abuse - counselled for cessation Will s/r/d/w Dr. Sutherland <Gregorio Sutherland - Last Filed: 01/17/17 21:15> Objective - Vital Signs/Intake and Output Vital Signs (last 24 hours): Temp Pulse Resp BP Pulse Ox 97.7 F 60 20 124/74 98 01/17/17 16:57 01/17/17 18:07 01/17/17 16:57 01/17/17 17:35 01/17/17 17:53 Intake and Output: 01/17/17 01/18/17 18:59 06:59 Intake Total 300 Output Total 800 Balance -500 - Medications Medications: Current Medications Aspirin (Ecotrin) 81 mg PO DAILY [facility] Last Admin: 01/17/17 10:07 Dose: 81 mg Atenolol (Tenormin) 25 mg PO DAILY [facility] Last Admin: 01/17/17 10:07 Dose: 25 mg Enoxaparin Sodium (Lovenox) 118 mg SC Q12 [facility] Last Admin: 01/17/17 10:31 Dose: 118 mg Furosemide (Lasix) 40 mg IVP BID [facility] Last Admin: 01/17/17 17:35 Dose: 40 mg Insulin Human Regular (Novolin R) 0 unit SC ACHS [facility] PRN Reason: Protocol Last Admin: 01/17/17 17:39 Dose: Not Given Losartan Potassium (Cozaar) 50 mg PO DAILY [facility] Last Admin: 01/17/17 10:34 Dose: 50 mg Morphine Sulfate (Morphine) 2 mg IV Q3 PRN PRN Reason: Pain, moderate (4-7) Pantoprazole Sodium (Protonix Inj) 40 mg IVP DAILY [facility] Last Admin: 01/17/17 10:09 Dose: 40 mg Rosuvastatin Calcium (Crestor) 10 mg PO HS [facility] - Labs Labs: 01/17/17 11:26 01/17/17 11:26 PT 11.8 SECONDS (9.7-12.2) 01/16/17 18:23 INR 1.0 01/16/17 18:23 APTT 32 SECONDS (21-34) 01/16/17 18:23 Assessment and Plan - Assessment and Plan (Free Text) Assessment: Patient seen and evaluated with the medical referral coordinator Plan of care documented
--- NOTE | 2017-01-17 17:11 | CP.PCM.CON ---
History of Present Illness - History of Present Illness History of Present Illness: Reason for consultation: Chest pain or shortness of breath 41 yo male with past medical hx of HTN, DM, CAD, HLD, [place] presenting with chest pain x 2-3 days associated with shortness of breath. Pain was getting worse in intensity and pain began radiating to jaw and left arm so that is why pt came in today. He describes it as pressure sensation. Pain is constant. He had cardiac cath in past but did not have stent placed due to technical issue. He doesn't say anything makes it worse, but the medicine he got in ER has made it somewhat better. He denies fevers, chills, nausea vomiting, cough, dysuria, hematuria, abdominal pain, diarrhea, constipation, hematochezia. She has history of asthma/COPD but states today hasnt had any attacks for the past many years Review of Systems - Review of Systems All systems: reviewed and no additional remarkable complaints except (Chest pain associated with shortness of breath) Past Patient History - Infectious Disease Hx of Infectious Diseases: None - Tetanus Immunizations Tetanus Immunization: Unknown - Past Medical History & Family History Past Medical History?: Yes - Past Social History Smoking Status: Light Smoker < 10 Cigarettes Daily - CARDIAC Hx Cardiac Disorders: Yes Hx Heart Attack: Yes Hx Hypercholesterolemia: Yes Hx Hypertension: Yes - PULMONARY Hx Respiratory Disorders: Yes Hx Asthma: Yes - NEUROLOGICAL Hx Neurological Disorder: No - HEENT Hx HEENT Problems: No - RENAL Hx Chronic Kidney Disease: No - ENDOCRINE/METABOLIC Hx Endocrine Disorders: Yes Hx Diabetes Mellitus Type 2: Yes - HEMATOLOGICAL/ONCOLOGICAL Hx Blood Disorders: No - INTEGUMENTARY Hx Dermatological Problems: No - MUSCULOSKELETAL/RHEUMATOLOGICAL Hx Musculoskeletal Disorders: No Hx Falls: No - GASTROINTESTINAL Hx Gastrointestinal Disorders: No - GENITOURINARY/GYNECOLOGICAL Hx Genitourinary Disorders: No - PSYCHIATRIC Hx Psychophysiologic Disorder: Yes Hx Anxiety: Yes Hx Depression: Yes Hx Substance Use: No - SURGICAL HISTORY Hx Surgeries: Yes Hx Cardiac Catheterization: Yes Other/Comment: foot surgery (due to accident at 12 yrs old) - ANESTHESIA Hx Anesthesia: No Hx Anesthesia Reactions: No Hx Malignant Hyperthermia: No Has any member of the family had a problem w/ anesthesia?: No Meds Allergies/Adverse Reactions: Allergies Allergy/AdvReac Type Severity Reaction Status Date / Time pollen extracts Allergy Verified 01/16/17 12:10 - Medications Medications: Current Medications Aspirin (Ecotrin) 81 mg PO DAILY [facility] Last Admin: 01/17/17 10:07 Dose: 81 mg Atenolol (Tenormin) 25 mg PO DAILY [facility] Last Admin: 01/17/17 10:07 Dose: 25 mg Enoxaparin Sodium (Lovenox) 118 mg SC Q12 [facility] Last Admin: 01/17/17 10:31 Dose: 118 mg Furosemide (Lasix) 40 mg IVP BID [facility] Last Admin: 01/17/17 10:09 Dose: 40 mg Insulin Human Regular (Novolin R) 0 unit SC ACHS [facility] PRN Reason: Protocol Last Admin: 01/17/17 11:30 Dose: Not Given Losartan Potassium (Cozaar) 50 mg PO DAILY [facility] Last Admin: 01/17/17 10:34 Dose: 50 mg Morphine Sulfate (Morphine) 2 mg IV Q3 PRN PRN Reason: Pain, moderate (4-7) Pantoprazole Sodium (Protonix Inj) 40 mg IVP DAILY [facility] Last Admin: 01/17/17 10:09 Dose: 40 mg Rosuvastatin Calcium (Crestor) 10 mg PO HS [facility] Physical Exam - Constitutional Appears: No Acute Distress - Head Exam Head Exam: ATRAUMATIC, NORMOCEPHALIC - Eye Exam Eye Exam: Normal appearance - ENT Exam ENT Exam: Mucous Membranes Moist - Respiratory Exam Respiratory Exam: Clear to Auscultation Bilateral - Cardiovascular Exam Cardiovascular Exam: REGULAR RHYTHM - GI/Abdominal Exam GI & Abdominal Exam: Normal Bowel Sounds, Soft - Extremities Exam Extremities exam: Positive for: full ROM, normal inspection - Neurological Exam Neurological exam: Alert, Oriented x3 Results - Vital Signs Recent Vital Signs: Last Vital Signs Temp 97.5 F L 01/17/17 07:00 Pulse 63 01/17/17 07:00 Resp 20 01/17/17 07:00 BP 119/78 01/17/17 10:09 Pulse Ox 96 01/17/17 07:00 - Labs Result Diagrams: 01/17/17 11:26 01/17/17 11:26 Labs: Laboratory Results - last 24 hr 01/16/17 01/16/17 01/16/17 17:29 17:29 17:29 WBC RBC Hgb Hct MCV MCH MCHC RDW Plt Count MPV Neut % (Auto) Lymph % (Auto) Forest % (Auto) Eos % (Auto) Baso % (Auto) Neut # Lymph # Forest # Eos # Baso # PT INR APTT D-Dimer, Quantitative Sodium Potassium Chloride Carbon Dioxide Anion Gap BUN Creatinine Est GFR ( Amer) Est GFR (Non-Af Amer) POC Glucose (mg/dL) Random Glucose Hemoglobin A1c Calcium Phosphorus Magnesium Total Bilirubin AST ALT Alkaline Phosphatase Troponin I < 0.0120 NT-Pro-B Natriuret Pep 213 Total Protein Albumin Globulin Albumin/Globulin Ratio Triglycerides Cholesterol LDL Cholesterol Direct HDL Cholesterol Procalcitonin < 0.05 L Free T4 Total T3 2.42 TSH 3rd Generation 1.22 01/16/17 01/16/17 01/16/17 17:29 17:43 18:23 WBC RBC Hgb Hct MCV MCH MCHC RDW Plt Count MPV Neut % (Auto) Lymph % (Auto) Forest % (Auto) Eos % (Auto) Baso % (Auto) Neut # Lymph # Forest # Eos # Baso # PT 11.8 INR 1.0 APTT 32 D-Dimer, Quantitative Cancelled Sodium Potassium Chloride Carbon Dioxide Anion Gap BUN Creatinine Est GFR ( Amer) Est GFR (Non-Af Amer) POC Glucose (mg/dL) 102 Random Glucose Hemoglobin A1c Calcium Phosphorus Magnesium Total Bilirubin AST ALT Alkaline Phosphatase Troponin I NT-Pro-B Natriuret Pep Total Protein Albumin Globulin Albumin/Globulin Ratio Triglycerides Cholesterol LDL Cholesterol Direct HDL Cholesterol Procalcitonin Free T4 0.86 Total T3 TSH 3rd Generation 01/16/17 01/17/17 01/17/17 21:17 01:20 04:22 WBC RBC Hgb Hct MCV MCH MCHC RDW Plt Count MPV Neut % (Auto) Lymph % (Auto) Forest % (Auto) Eos % (Auto) Baso % (Auto) Neut # Lymph # Forest # Eos # Baso # PT INR APTT D-Dimer, Quantitative < 200 Sodium Potassium Chloride Carbon Dioxide Anion Gap BUN Creatinine Est GFR ( Amer) Est GFR (Non-Af Amer) POC Glucose (mg/dL) 147 H Random Glucose Hemoglobin A1c Calcium Phosphorus Magnesium Total Bilirubin AST ALT Alkaline Phosphatase Troponin I < 0.0120 NT-Pro-B Natriuret Pep Total Protein Albumin Globulin Albumin/Globulin Ratio Triglycerides Cholesterol LDL Cholesterol Direct HDL Cholesterol Procalcitonin Free T4 Total T3 TSH 3rd Generation 01/17/17 01/17/17 01/17/17 06:34 11:26 11:26 WBC 12.9 H RBC 5.79 Hgb 16.1 Hct 48.5 MCV 83.7 MCH 27.8 MCHC 33.2 RDW 13.4 Plt Count 244 MPV 8.3 Neut % (Auto) 53.9 Lymph % (Auto) 36.2 Forest % (Auto) 6.1 Eos % (Auto) 2.8 Baso % (Auto) 1.0 Neut # 7.0 Lymph # 4.7 H Forest # 0.8 Eos # 0.4 Baso # 0.1 PT INR APTT D-Dimer, Quantitative Sodium 136 Potassium 3.8 Chloride 100 Carbon Dioxide 26 Anion Gap 15 BUN 13 Creatinine 1.1 Est GFR ( Amer) > 60 Est GFR (Non-Af Amer) > 60 POC Glucose (mg/dL) 130 H Random Glucose 138 H Hemoglobin A1c Calcium 9.1 Phosphorus 3.5 Magnesium 1.7 Total Bilirubin 0.9 AST 26 ALT 30 Alkaline Phosphatase 71 Troponin I NT-Pro-B Natriuret Pep Total Protein 7.6 Albumin 4.2 Globulin 3.4 Albumin/Globulin Ratio 1.3 Triglycerides 180 H Cholesterol 137 LDL Cholesterol Direct 92 HDL Cholesterol 27 L Procalcitonin Free T4 Total T3 TSH 3rd Generation 01/17/17 01/17/17 01/17/17 11:26 13:03 14:13 WBC RBC Hgb Hct MCV MCH MCHC RDW Plt Count MPV Neut % (Auto) Lymph % (Auto) Forest % (Auto) Eos % (Auto) Baso % (Auto) Neut # Lymph # Forest # Eos # Baso # PT INR APTT D-Dimer, Quantitative Sodium Potassium Chloride Carbon Dioxide Anion Gap BUN Creatinine Est GFR ( Amer) Est GFR (Non-Af Amer) POC Glucose (mg/dL) 141 H Random Glucose Hemoglobin A1c 6.6 H D Calcium Phosphorus Magnesium Total Bilirubin AST ALT Alkaline Phosphatase Troponin I NT-Pro-B Natriuret Pep 329 Total Protein Albumin Globulin Albumin/Globulin Ratio Triglycerides Cholesterol LDL Cholesterol Direct HDL Cholesterol Procalcitonin Free T4 Total T3 TSH 3rd Generation Assessment & Plan (1) Asthma Status: Acute Comment: Patient states that he hasn't had any attack for many years and does not use any inhaler. Cardiac workup. Nebulizer treatment as needed (2) Chest pain Status: Acute
[2017-01-18] MEDS: (Novolin R) Insulin Human Regular 100 units/ml vial SC SCH ×4 (07:13→21:58)
[2017-01-18 07:26] LABS: BASO # 0.1 K/uL (0.0-0.2); BASO % 0.7 % (0.0-2.0); EOS # 0.4 K/uL (0.0-0.7); EOS % 2.8 % (0.0-4.0); HEMATOCRIT 50.9 % (35.0-51.0); LYMPH % 34.9 % (20.0-40.0); MEAN CELL VOLUME 84.2 fL (80.0-94.0); MEAN CORPUSCULAR HEMOGLOBIN 28.6 pg (27.0-31.0); MEAN PLATELET VOLUME 8.2 fL (7.2-11.7); MONO # 1.2 K/uL (0.0-0.8); MONO % 8.5 % (0.0-10.0); NRBC % 0.1 % (0.0-2.0); WHITE BLOOD COUNT 14.3 K/uL (4.8-10.8)
[2017-01-18 07:44] LABS: CHLORIDE 96 mmol/L (98-107); POTASSIUM 3.8 mmol/L (3.6-5.2); SODIUM 136 mmol/L (132-148)
[2017-01-18 07:46] LABS: ALB/GLOB RATIO 1.2 (1.0-2.1); ALKALINE PHOSPHATASE 79 U/L (38-126); AST/SGOT 27 U/L (17-59); BILIRUBIN,TOTAL 0.8 mg/dL (0.2-1.3); CARBON DIOXIDE 30 mmol/L (22-30); GFR AFRICAN-AMERICAN > 60; TOTAL PROTEIN 7.5 g/dL (6.3-8.3)
[2017-01-18 07:47] LABS: ALT/SGPT 23 U/L (21-72); BLOOD UREA NITROGEN 17 mg/dL (9-20); CALCIUM 8.7 mg/dl (8.6-10.4); GLUCOSE,RANDOM 96 mg/dL (75-110); PHOSPHOROUS 3.4 mg/dL (2.5-4.5)
[2017-01-18 07:48] LABS: MAGNESIUM 2.1 mg/dL (1.6-2.3)
[2017-01-18] MEDS: Enoxaparin 120 mg Syringe SC SCH (11:37)
--- NOTE | 2017-01-18 11:40 | CP.PCM.PN ---
<Derik Carvalho - Last Filed: 01/18/17 11:40> Subjective - Date & Time of Evaluation Date of Evaluation: 01/18/17 Time of Evaluation: 11:40 - Subjective Subjective: Med progress note. Attending: Dr. Alfonso Pt seen and examined at bedside. No acute distress. No events overnight. Stress test pending. Denies fevers, chills, vomiting, diarrhea, cp, sob. Objective - Vital Signs/Intake and Output Vital Signs (last 24 hours): Temp Pulse Resp BP Pulse Ox 98.2 F 63 20 118/80 96 01/18/17 08:00 01/18/17 08:00 01/18/17 08:00 01/18/17 10:25 01/18/17 08:00 - Medications Medications: Current Medications Aspirin (Ecotrin) 81 mg PO DAILY [facility] Last Admin: 01/18/17 10:35 Dose: 81 mg Atenolol (Tenormin) 25 mg PO DAILY [facility] Last Admin: 01/18/17 10:25 Dose: 25 mg Enoxaparin Sodium (Lovenox) 118 mg SC Q12 [facility] Last Admin: 01/17/17 22:13 Dose: 118 mg Furosemide (Lasix) 40 mg IVP BID [facility] Last Admin: 01/18/17 10:25 Dose: 40 mg Insulin Human Regular (Novolin R) 0 unit SC ACHS [facility] PRN Reason: Protocol Last Admin: 01/18/17 07:13 Dose: Not Given Losartan Potassium (Cozaar) 50 mg PO DAILY [facility] Last Admin: 01/18/17 10:25 Dose: 50 mg Morphine Sulfate (Morphine) 2 mg IV Q3 PRN PRN Reason: Pain, moderate (4-7) Pantoprazole Sodium (Protonix Inj) 40 mg IVP DAILY [facility] Last Admin: 01/18/17 10:24 Dose: 40 mg Rosuvastatin Calcium (Crestor) 20 mg PO HS [facility] - Labs Labs: 01/18/17 07:06 01/18/17 07:06 PT 11.8 SECONDS (9.7-12.2) 01/16/17 18:23 INR 1.0 01/16/17 18:23 APTT 32 SECONDS (21-34) 01/16/17 18:23 - Constitutional Appears: Non-toxic, No Acute Distress - Head Exam Head Exam: ATRAUMATIC, NORMAL INSPECTION, NORMOCEPHALIC - Eye Exam Eye Exam: EOMI - ENT Exam ENT Exam: Mucous Membranes Moist - Neck Exam Neck Exam: Full ROM, Normal Inspection - Respiratory Exam Respiratory Exam: NORMAL BREATHING PATTERN. absent: Respiratory Distress - Cardiovascular Exam Cardiovascular Exam: +S1, +S2 - GI/Abdominal Exam GI & Abdominal Exam: Soft, Normal Bowel Sounds. absent: Tenderness - Extremities Exam Extremities Exam: Full ROM, Normal Inspection - Neurological Exam Neurological Exam: Alert, Awake, CN II-XII Intact, Oriented x3 - Psychiatric Exam Psychiatric exam: Normal Affect, Normal Mood - Skin Skin Exam: Dry, Intact, Normal Color, Warm Assessment and Plan - Assessment and Plan (Free Text) Assessment: This is a 41 yo male with past medical hx of DM, HTN, HLD, CAD presenting with cc of chest pain 1. Unstable angina -morphine 2 mg IV q 3 hrs prn pain -o2 by nasal cannula as needed -trops negative x 3 -cardio consult. Dr. Sutherland. recs appreciated. -asa 81 daily -therapeutic lovenox -restart home lipitor>>> changed to crestor 10 mg po hs>> changed to crestor 20 -continue home atenolol 25 mg po daily -continue home losartan 50 mg po daily -TSH wnl -BNP pending -CXR pa/lateral negative -EKG shows NSR, poor r wave progression, no st elevations, depressions -echo pending -cardiology workup in progress, pt for stress test today 2. Hx of HTN -continue home atenolol 25 mg po daily -continue losartan 50 mg po daily 3. hx of DM -ISS -HGB A1C 6.6 4. Hx of HLD -continue home lipitor>>> changed to crestor 20 mg po hs -lipid profile pending 5. tobacco abuse -pt counselled multiple times on need to stop smoking. pt is aware of risks but feels he cannot stop. 6. GI/DVT ppx -protonix daily -lovenox 118 mg sc bid discussed with Dr. Alfonso <Rob Alfonso - Last Filed: 01/19/17 07:52> Objective - Vital Signs/Intake and Output Vital Signs (last 24 hours): Temp Pulse Resp BP Pulse Ox 98.2 F 61 18 107/70 95 01/19/17 00:00 01/19/17 00:00 01/19/17 00:00 01/19/17 00:00 01/19/17 00:00 - Medications Medications: Current Medications Aspirin (Ecotrin) 81 mg PO DAILY [facility] Last Admin: 01/18/17 10:35 Dose: 81 mg Atenolol (Tenormin) 25 mg PO DAILY [facility] Last Admin: 01/18/17 10:25 Dose: 25 mg Furosemide (Lasix) 40 mg IVP BID [facility] Last Admin: 01/18/17 17:25 Dose: 40 mg Heparin Sodium (Porcine) (Heparin) 5,000 units SC Q12 [facility] Last Admin: 01/18/17 22:43 Dose: Not Given Insulin Human Regular (Novolin R) 0 unit SC ACHS [facility] PRN Reason: Protocol Last Admin: 01/18/17 21:58 Dose: Not Given Losartan Potassium (Cozaar) 50 mg PO DAILY [facility] Last Admin: 01/18/17 10:25 Dose: 50 mg Morphine Sulfate (Morphine) 2 mg IV Q3 PRN PRN Reason: Pain, moderate (4-7) Last Admin: 01/18/17 23:06 Dose: 2 mg Pantoprazole Sodium (Protonix Inj) 40 mg IVP DAILY [facility] Last Admin: 01/18/17 10:24 Dose: 40 mg Rosuvastatin Calcium (Crestor) 20 mg PO HS [facility] Last Admin: 01/18/17 21:55 Dose: 20 mg - Labs Labs: PT 11.8 SECONDS (9.7-12.2) 01/16/17 18:23 INR 1.0 01/16/17 18:23 APTT 32 SECONDS (21-34) 01/16/17 18:23 Attending/Attestation - Attestation I have personally seen and examined this patient.: Yes I have fully participated in the care of the patient.: Yes I have reviewed all pertinent clinical information, including history, physical exam and plan: Yes Notes (Text): 01/19/17 07:50 Medical attending: Patient was seen and examined by me, agrees the above note by medical transcription. The patient underwent a 2-D echo as well as a stress test yesterday in the afternoon the results results of which are not yet available to me hopefully will get back today. We again had another discussion with regards to the patient smoking. As we've been documented before the patient is only 41 years old he's already had one ME and yet he still smokes. He realizes that this puts him at a great risk. He also needs to a lot of lifestyle modifications as well particularly diet and exercise weight loss. The patient again when we discussed at that he understands that smoking places him at great risk but he's not interested in stopping smoking Thank you very much, Rob Alfonso
--- NOTE | 2017-01-18 13:40 | CP.PCM.PN ---
<Madisyn Antony - Last Filed: 01/18/17 13:38> Subjective - Date & Time of Evaluation Date of Evaluation: 01/18/17 Time of Evaluation: 13:38 - Subjective Subjective: PGY-[address] Sutherland Pt seen and examined in stress test lab. one 5/10 sharp chest pain episode at rest 8pm last night. No accompanying tele abnormality. Resolved in seconds. No radiation, diaphoresis, N/V, SOB Objective - Vital Signs/Intake and Output Vital Signs (last 24 hours): Temp Pulse Resp BP Pulse Ox 98.2 F 63 20 118/80 96 01/18/17 08:00 01/18/17 08:00 01/18/17 08:00 01/18/17 10:25 01/18/17 08:00 - Medications Medications: Current Medications Aspirin (Ecotrin) 81 mg PO DAILY [facility] Last Admin: 01/18/17 10:35 Dose: 81 mg Atenolol (Tenormin) 25 mg PO DAILY [facility] Last Admin: 01/18/17 10:25 Dose: 25 mg Enoxaparin Sodium (Lovenox) 118 mg SC Q12 [facility] Last Admin: 01/18/17 11:37 Dose: 118 mg Furosemide (Lasix) 40 mg IVP BID [facility] Last Admin: 01/18/17 10:25 Dose: 40 mg Insulin Human Regular (Novolin R) 0 unit SC ACHS [facility] PRN Reason: Protocol Last Admin: 01/18/17 11:57 Dose: Not Given Losartan Potassium (Cozaar) 50 mg PO DAILY [facility] Last Admin: 01/18/17 10:25 Dose: 50 mg Morphine Sulfate (Morphine) 2 mg IV Q3 PRN PRN Reason: Pain, moderate (4-7) Pantoprazole Sodium (Protonix Inj) 40 mg IVP DAILY [facility] Last Admin: 01/18/17 10:24 Dose: 40 mg Rosuvastatin Calcium (Crestor) 20 mg PO HS [facility] - Labs Labs: 01/18/17 07:06 01/18/17 07:06 PT 11.8 SECONDS (9.7-12.2) 01/16/17 18:23 INR 1.0 01/16/17 18:23 APTT 32 SECONDS (21-34) 01/16/17 18:23 - Constitutional Appears: No Acute Distress - Head Exam Head Exam: ATRAUMATIC, NORMOCEPHALIC - Eye Exam Eye Exam: EOMI, Normal appearance - ENT Exam ENT Exam: Mucous Membranes Moist - Neck Exam Neck Exam: absent: Meningismus, Thyromegaly Additional comments: no carotid bruit - Respiratory Exam Respiratory Exam: Clear to Ausculation Bilateral, NORMAL BREATHING PATTERN. absent: Accessory Muscle Use, Rales, Rhonchi, Wheezes - Cardiovascular Exam Cardiovascular Exam: REGULAR RHYTHM, +S1, +S2. absent: Murmur - GI/Abdominal Exam GI & Abdominal Exam: Soft. absent: Guarding, Rigid, Tenderness - Extremities Exam Extremities Exam: Normal Capillary Refill. absent: Calf Tenderness, Pedal Edema - Back Exam Back Exam: absent: CVA tenderness (L), CVA tenderness (R) - Neurological Exam Neurological Exam: Alert, Awake, Oriented x3 - Psychiatric Exam Psychiatric exam: Normal Affect, Normal Mood - Skin Skin Exam: Dry, Warm Assessment and Plan - Assessment and Plan (Free Text) Plan: 41 M, active smoker, with PMHx of HTN, HLD, DM, AK/CAD, triple vessel disease s/ p PCI only (no stent), COPD/Asthma, presenting with chest pain at rest x 2-3 days. Pt recently started exercise by walking a miles 5 days / week Unstable angina Chest Pain - resolved r/o CHF r/o ischemic cardiomyopathy - trops negative x 3 - Therapeutic lovenox per primary team - Echo Pending official read - Stress test Pending official read - lasix 40 IV BID CAD s/p PCI - ASA, Atenolol, Losartan, Crestor 20 L-axis deviation on EKG - Goal BP control < 140/90 DM2, A1C 6.6 - goal A1C < 6.5 Tobacco abuse - counselled for cessation Will s/r/d/w Dr. Sutherland <Gregorio Sutherland - Last Filed: 01/18/17 17:27> Objective - Vital Signs/Intake and Output Vital Signs (last 24 hours): Temp Pulse Resp BP Pulse Ox 98.3 F 65 20 118/79 95 01/18/17 15:32 01/18/17 15:56 01/18/17 15:32 01/18/17 17:25 01/18/17 15:32 Intake and Output: 01/18/17 01/18/17 06:59 18:59 Intake Total 450 Balance 450 - Medications Medications: Current Medications Aspirin (Ecotrin) 81 mg PO DAILY [facility] Last Admin: 01/18/17 10:35 Dose: 81 mg Atenolol (Tenormin) 25 mg PO DAILY [facility] Last Admin: 01/18/17 10:25 Dose: 25 mg Enoxaparin Sodium (Lovenox) 118 mg SC Q12 [facility] Last Admin: 01/18/17 11:37 Dose: 118 mg Furosemide (Lasix) 40 mg IVP BID [facility] Last Admin: 01/18/17 17:25 Dose: 40 mg Insulin Human Regular (Novolin R) 0 unit SC ACHS [facility] PRN Reason: Protocol Last Admin: 01/18/17 17:24 Dose: Not Given Losartan Potassium (Cozaar) 50 mg PO DAILY [facility] Last Admin: 01/18/17 10:25 Dose: 50 mg Morphine Sulfate (Morphine) 2 mg IV Q3 PRN PRN Reason: Pain, moderate (4-7) Pantoprazole Sodium (Protonix Inj) 40 mg IVP DAILY [facility] Last Admin: 01/18/17 10:24 Dose: 40 mg Rosuvastatin Calcium (Crestor) 20 mg PO HS [facility] - Labs Labs: 01/18/17 07:06 01/18/17 07:06 PT 11.8 SECONDS (9.7-12.2) 01/16/17 18:23 INR 1.0 01/16/17 18:23 APTT 32 SECONDS (21-34) 01/16/17 18:23 Assessment and Plan - Assessment and Plan (Free Text) Assessment: Patient seen and evaluated Abnormal stress test suggestive of stress induced ischemia EF 50% For Cath tomorrow
[2017-01-19] MEDS ORDERED: Sodium Chloride 0.9% 1,000 ML IV SCH (08:15)
[2017-01-19] MEDS: (Novolin R) Insulin Human Regular 100 units/ml vial SC SCH ×4 (08:50→22:16)
[2017-01-19 08:56] LABS: BASO # 0.1 K/uL (0.0-0.2); BASO % 0.6 % (0.0-2.0); EOS # 0.4 K/uL (0.0-0.7); EOS % 2.5 % (0.0-4.0); HEMATOCRIT 51.4 % (35.0-51.0); LYMPH # 4.7 K/uL (1.0-4.3); LYMPH % 30.5 % (20.0-40.0); MEAN CELL VOLUME 84.1 fL (80.0-94.0); MEAN CORPUSCULAR HEMOGLOBIN 28.2 pg (27.0-31.0); MEAN CORPUSCULAR HGB CONC 33.5 g/dL (33.0-37.0); MEAN PLATELET VOLUME 8.2 fL (7.2-11.7); MONO # 1.2 K/uL (0.0-0.8); MONO % 7.8 % (0.0-10.0); RED CELL DISTRIBUTION WIDTH 13.2 % (11.5-14.5); WHITE BLOOD COUNT 15.4 K/uL (4.8-10.8)
[2017-01-19 09:07] LABS: CHLORIDE 96 mmol/L (98-107); SODIUM 134 mmol/L (132-148)
[2017-01-19 09:08] LABS: POTASSIUM 3.7 mmol/L (3.6-5.2)
[2017-01-19 09:10] LABS: ALB/GLOB RATIO 1.2 (1.0-2.1); ALKALINE PHOSPHATASE 72 U/L (38-126); AST/SGOT 52 U/L (17-59); BLOOD UREA NITROGEN 20 mg/dL (9-20); CARBON DIOXIDE 25 mmol/L (22-30); GFR AFRICAN-AMERICAN > 60; GLUCOSE,RANDOM 101 mg/dL (75-110); PHOSPHOROUS 3.7 mg/dL (2.5-4.5); TOTAL PROTEIN 7.8 g/dL (6.3-8.3)
[2017-01-19 09:11] LABS: ALT/SGPT 36 U/L (21-72); CALCIUM 8.8 mg/dl (8.6-10.4); MAGNESIUM 2.1 mg/dL (1.6-2.3)
[2017-01-19] MEDS ORDERED: Iodixanol 320 MG/ML 100 ML BOTTLE IV ONE (10:59)
[2017-01-19] MEDS ORDERED: Midazolam 2 MG/2 ML VIAL ONE (11:11)
[2017-01-19] MEDS ORDERED: Lidocaine 2% Inj (20ml) ONE (11:43)
--- NOTE | 2017-01-19 14:56 | CP.PCM.PN ---
<Derik Carvalho - Last Filed: 01/19/17 14:59> Subjective - Date & Time of Evaluation Date of Evaluation: 01/19/17 Time of Evaluation: 14:55 - Subjective Subjective: Med progress note. Attending: Dr. Alfonso Pt seen and examined at bedside. No acute distress. Pt had cath this morning- showing triple vessel disease. Will most likely need CABG and transfer to [facility]. No events overnight. Stress report pending. Objective - Vital Signs/Intake and Output Vital Signs (last 24 hours): Temp Pulse Resp BP Pulse Ox 97.9 F 86 20 127/73 95 01/19/17 07:30 01/19/17 08:15 01/19/17 07:30 01/19/17 07:30 01/19/17 07:30 - Medications Medications: Current Medications Aspirin (Ecotrin) 81 mg PO DAILY [facility] Last Admin: 01/19/17 14:00 Dose: Not Given Atenolol (Tenormin) 25 mg PO DAILY [facility] Last Admin: 01/19/17 10:00 Dose: Not Given Furosemide (Lasix) 40 mg IVP BID [facility] Last Admin: 01/18/17 17:25 Dose: 40 mg Heparin Sodium (Porcine) (Heparin) 5,000 units SC Q12 [facility] Last Admin: 01/19/17 10:00 Dose: Not Given Sodium Chloride (Sodium Chloride 0.9%) 1,000 mls @ 80 mls/hr IV .[id number] [facility] Stop: 01/20/17 01:00 Insulin Human Regular (Novolin R) 0 unit SC ACHS [facility] PRN Reason: Protocol Last Admin: 01/19/17 12:00 Dose: Not Given Losartan Potassium (Cozaar) 50 mg PO DAILY [facility] Last Admin: 01/18/17 10:25 Dose: 50 mg Morphine Sulfate (Morphine) 2 mg IV Q3 PRN PRN Reason: Pain, moderate (4-7) Last Admin: 01/18/17 23:06 Dose: 2 mg Pantoprazole Sodium (Protonix Inj) 40 mg IVP DAILY [facility] Last Admin: 01/18/17 10:24 Dose: 40 mg Rosuvastatin Calcium (Crestor) 20 mg PO HS [facility] Last Admin: 01/18/17 21:55 Dose: 20 mg - Labs Labs: 01/19/17 08:45 01/19/17 08:45 PT 11.8 SECONDS (9.7-12.2) 01/16/17 18:23 INR 1.0 01/16/17 18:23 APTT 32 SECONDS (21-34) 01/16/17 18:23 - Constitutional Appears: Non-toxic, No Acute Distress - Head Exam Head Exam: ATRAUMATIC, NORMAL INSPECTION, NORMOCEPHALIC - Eye Exam Eye Exam: EOMI - ENT Exam ENT Exam: Mucous Membranes Moist - Neck Exam Neck Exam: Full ROM, Normal Inspection - Respiratory Exam Respiratory Exam: NORMAL BREATHING PATTERN. absent: Respiratory Distress - Cardiovascular Exam Cardiovascular Exam: +S1, +S2 - GI/Abdominal Exam GI & Abdominal Exam: Soft, Normal Bowel Sounds. absent: Tenderness - Extremities Exam Extremities Exam: Full ROM, Normal Inspection - Back Exam Back Exam: NORMAL INSPECTION - Neurological Exam Neurological Exam: Alert, Awake, CN II-XII Intact, Oriented x3 - Psychiatric Exam Psychiatric exam: Normal Affect, Normal Mood - Skin Skin Exam: Dry, Intact, Normal Color, Warm Assessment and Plan - Assessment and Plan (Free Text) Assessment: This is a 41 yo male with past medical hx of DM, HTN, HLD, CAD presenting with cc of chest pain 1. Unstable angina -morphine 2 mg IV q 3 hrs prn pain -o2 by nasal cannula as needed -trops negative x 3 -cardio consult. Dr. Sutherland. recs appreciated. -asa 81 daily -heparin 5000 q 12 -restart home lipitor>>> changed to crestor 10 mg po hs>> changed to crestor 20 -continue home atenolol 25 mg po daily -continue home losartan 50 mg po daily -TSH wnl -BNP pending -CXR pa/lateral negative -EKG shows NSR, poor r wave progression, no st elevations, depressions -echo pending -cardiology workup in progress, pt for stress test>>> report pending -pt with cardiac cath this morning, triple vessel dx -meets criteria for CABG -will be transferred to [facility] -lasix 40 IV q 12 hrs 2. Hx of HTN -continue home atenolol 25 mg po daily -continue losartan 50 mg po daily 3. hx of DM -ISS -HGB A1C 6.6 4. Hx of HLD -continue home lipitor>>> changed to crestor 20 mg po hs -lipid profile pending 5. tobacco abuse -pt counselled multiple times on need to stop smoking. pt is aware of risks but feels he cannot stop. 6. GI/DVT ppx -protonix daily -heparin [address] Alfonso <Rob Alfonso - Last Filed: 01/20/17 10:21> Objective - Vital Signs/Intake and Output Vital Signs (last 24 hours): Temp Pulse Resp BP Pulse Ox 98.2 F 65 22 136/90 97 01/20/17 10:10 01/20/17 10:10 01/20/17 10:10 01/20/17 10:10 01/20/17 10:10 Intake and Output: 01/20/17 01/20/17 06:59 18:59 Intake Total 840 Balance 840 - Medications Medications: Current Medications Aspirin (Ecotrin) 81 mg PO DAILY [facility] Last Admin: 01/20/17 10:08 Dose: 81 mg Atenolol (Tenormin) 25 mg PO DAILY [facility] Last Admin: 01/20/17 10:08 Dose: 25 mg Furosemide (Lasix) 40 mg IVP BID [facility] Last Admin: 01/20/17 10:07 Dose: 40 mg Heparin Sodium (Porcine) (Heparin) 5,000 units SC Q12 [facility] Last Admin: 01/20/17 10:07 Dose: 5,000 units Insulin Human Regular (Novolin R) 0 unit SC ACHS [facility] PRN Reason: Protocol Last Admin: 01/20/17 08:07 Dose: Not Given Ketorolac Tromethamine (Toradol) 30 mg IVP Q6 PRN PRN Reason: pain Last Admin: 01/19/17 19:10 Dose: 30 mg Losartan Potassium (Cozaar) 50 mg PO DAILY [facility] Last Admin: 01/20/17 10:08 Dose: 50 mg Morphine Sulfate (Morphine) 2 mg IV Q3 PRN PRN Reason: Pain, moderate (4-7) Last Admin: 01/18/17 23:06 Dose: 2 mg Pantoprazole Sodium (Protonix Inj) 40 mg IVP DAILY [facility] Last Admin: 01/20/17 10:08 Dose: 40 mg Rosuvastatin Calcium (Crestor) 20 mg PO HS [facility] Last Admin: 01/19/17 22:16 Dose: 20 mg - Labs Labs: 01/20/17 04:38 06/03/17 04:38 PT 11.8 SECONDS (9.7-12.2) 01/16/17 18:23 INR 1.0 01/16/17 18:23 APTT 32 SECONDS (21-34) 01/16/17 18:23 Attending/Attestation - Attestation I have personally seen and examined this patient.: Yes I have fully participated in the care of the patient.: Yes I have reviewed all pertinent clinical information, including history, physical exam and plan: Yes Notes (Text): Medical attending: Patient completed the cardiac cath, stress, echo. He is very depressed about the results and as mentioned before we have been having a discussion at length with him. He understands how serious the situation is, and specially about the smoking that he is still doing. At some point he will be moved to [facility] for further intervention due to multi vessel disease. Currently holding the Plavix at this time. Rob Alfonso
[2017-01-19] MEDS: Sodium Chloride 0.9% 1,000 ML IV SCH (17:34)
--- NOTE | 2017-01-19 23:00 | CP.PCM.PN ---
Subjective - Date & Time of Evaluation Date of Evaluation: 01/19/17 Time of Evaluation: 12:30 - Subjective Subjective: Patient s/p cath Triple vessel CAD For transfer to [facility] for CABG Objective - Vital Signs/Intake and Output Vital Signs (last 24 hours): Temp Pulse Resp BP Pulse Ox 97.6 F 60 20 120/75 98 01/19/17 15:10 01/19/17 15:10 01/19/17 15:10 01/19/17 15:10 01/19/17 15:10 - Medications Medications: Current Medications Aspirin (Ecotrin) 81 mg PO DAILY [facility] Last Admin: 01/19/17 14:00 Dose: Not Given Atenolol (Tenormin) 25 mg PO DAILY [facility] Last Admin: 01/19/17 10:00 Dose: Not Given Furosemide (Lasix) 40 mg IVP BID [facility] Last Admin: 01/18/17 17:25 Dose: 40 mg Heparin Sodium (Porcine) (Heparin) 5,000 units SC Q12 [facility] Last Admin: 01/19/17 22:16 Dose: 5,000 units Sodium Chloride (Sodium Chloride 0.9%) 1,000 mls @ 80 mls/hr IV .[id number] [facility] Stop: 01/20/17 01:00 Last Admin: 01/19/17 17:34 Dose: 80 mls/hr Insulin Human Regular (Novolin R) 0 unit SC ACHS [facility] PRN Reason: Protocol Last Admin: 01/19/17 22:16 Dose: Not Given Ketorolac Tromethamine (Toradol) 30 mg IVP Q6 PRN PRN Reason: pain Last Admin: 01/19/17 19:10 Dose: 30 mg Losartan Potassium (Cozaar) 50 mg PO DAILY [facility] Last Admin: 01/18/17 10:25 Dose: 50 mg Morphine Sulfate (Morphine) 2 mg IV Q3 PRN PRN Reason: Pain, moderate (4-7) Last Admin: 01/18/17 23:06 Dose: 2 mg Pantoprazole Sodium (Protonix Inj) 40 mg IVP DAILY [facility] Last Admin: 01/19/17 17:34 Dose: 40 mg Rosuvastatin Calcium (Crestor) 20 mg PO HS [facility] Last Admin: 01/19/17 22:16 Dose: 20 mg - Labs Labs: 01/19/17 08:45 01/19/17 08:45 PT 11.8 SECONDS (9.7-12.2) 01/16/17 18:23 INR 1.0 01/16/17 18:23 APTT 32 SECONDS (21-34) 01/16/17 18:23
[2017-01-20] MEDS: Sodium Chloride 0.9% 1,000 ML IV SCH (00:16)
[2017-01-20 04:41] LABS: BASO # 0.1 K/uL (0.0-0.2); BASO % 0.5 % (0.0-2.0); EOS # 0.3 K/uL (0.0-0.7); EOS % 2.9 % (0.0-4.0); HEMATOCRIT 46.8 % (35.0-51.0); LYMPH # 3.6 K/uL (1.0-4.3); LYMPH % 29.8 % (20.0-40.0); MEAN CELL VOLUME 83.5 fL (80.0-94.0); MEAN CORPUSCULAR HEMOGLOBIN 28.4 pg (27.0-31.0); MEAN CORPUSCULAR HGB CONC 34.1 g/dL (33.0-37.0); MEAN PLATELET VOLUME 8.1 fL (7.2-11.7); MONO # 0.7 K/uL (0.0-0.8); MONO % 6.1 % (0.0-10.0); NRBC % 0.1 % (0.0-2.0); RED CELL DISTRIBUTION WIDTH 13.3 % (11.5-14.5); WHITE BLOOD COUNT 12.1 K/uL (4.8-10.8)
[2017-01-20 04:51] LABS: CHLORIDE 99 mmol/L (98-107)
[2017-01-20 04:52] LABS: POTASSIUM 3.8 mmol/L (3.6-5.2); SODIUM 135 mmol/L (132-148)
[2017-01-20 04:54] LABS: ALB/GLOB RATIO 1.3 (1.0-2.1); AST/SGOT 38 U/L (17-59); BILIRUBIN,TOTAL 0.7 mg/dL (0.2-1.3); CARBON DIOXIDE 27 mmol/L (22-30); GFR AFRICAN-AMERICAN > 60; TOTAL PROTEIN 6.8 g/dL (6.3-8.3)
[2017-01-20 04:55] LABS: ALKALINE PHOSPHATASE 63 U/L (38-126); ALT/SGPT 45 U/L (21-72); BLOOD UREA NITROGEN 20 mg/dL (9-20); CALCIUM 8.2 mg/dl (8.6-10.4); GLUCOSE,RANDOM 193 mg/dL (75-110); MAGNESIUM 2.3 mg/dL (1.6-2.3); PHOSPHOROUS 3.2 mg/dL (2.5-4.5)
--- NOTE | 2017-01-20 05:17 | CP.PCM.DIS ---
<Leah Garnett - Last Filed: 01/20/17 05:16> Provider - Provider Date of Admission: 01/18/17 17:16 Attending physician: Rob Alfonso DO Hospital Course - Lab Results Lab Results: Most Recent Lab Values WBC 12.1 K/uL (4.8-10.8) H 01/20/17 04:38 RBC 5.60 Mil/uL (4.40-5.90) 01/20/17 04:38 Hgb 15.9 g/dL (12.0-18.0) 01/20/17 04:38 Hct 46.8 % (35.0-51.0) 01/20/17 04:38 MCV 83.5 fL (80.0-94.0) 01/20/17 04:38 MCH 28.4 pg (27.0-31.0) 01/20/17 04:38 MCHC 34.1 g/dL (33.0-37.0) 01/20/17 04:38 RDW 13.3 % (11.5-14.5) 01/20/17 04:38 Plt Count 222 K/uL (130-400) 01/20/17 04:38 MPV 8.1 fL (7.2-11.7) 01/20/17 04:38 Neut % (Auto) 60.7 % (50.0-75.0) 01/20/17 04:38 Lymph % (Auto) 29.8 % (20.0-40.0) 01/20/17 04:38 Emmons % (Auto) 6.1 % (0.0-10.0) 01/20/17 04:38 Eos % (Auto) 2.9 % (0.0-4.0) 01/20/17 04:38 Baso % (Auto) 0.5 % (0.0-2.0) 01/20/17 04:38 Neut # 7.3 K/uL (1.8-7.0) H 01/20/17 04:38 Lymph # 3.6 K/uL (1.0-4.3) 01/20/17 04:38 Emmons # 0.7 K/uL (0.0-0.8) 01/20/17 04:38 Eos # 0.3 K/uL (0.0-0.7) 01/20/17 04:38 Baso # 0.1 K/uL (0.0-0.2) 01/20/17 04:38 PT 11.8 SECONDS (9.7-12.2) 01/16/17 18:23 INR 1.0 01/16/17 18:23 APTT 32 SECONDS (21-34) 01/16/17 18:23 D-Dimer, Quantitative < 200 ng/mlDDU (0-243) 01/17/17 04:22 Sodium 135 mmol/L (132-148) 01/20/17 04:38 Potassium 3.8 mmol/L (3.6-5.2) 01/20/17 04:38 Chloride 99 mmol/L (98-107) 01/20/17 04:38 Carbon Dioxide 27 mmol/L (22-30) 01/20/17 04:38 Anion Gap 13 (10-20) 01/20/17 04:38 BUN 20 mg/dL (9-20) 01/20/17 04:38 Creatinine 1.1 MG/DL (0.8-1.5) 01/20/17 04:38 Est GFR ( Amer) > 60 01/20/17 04:38 Est GFR (Non-Af Amer) > 60 01/20/17 04:38 POC Glucose (mg/dL) 102 mg/dL (65-110) 01/19/17 21:16 Random Glucose 193 mg/dL (75-110) H 01/20/17 04:38 Hemoglobin A1c 6.6 % (4.2-6.5) H D 01/17/17 11:26 Calcium 8.2 mg/dl (8.6-10.4) L 01/20/17 04:38 Phosphorus 3.2 mg/dL (2.5-4.5) 01/20/17 04:38 Magnesium 2.3 mg/dL (1.6-2.3) 01/20/17 04:38 Total Bilirubin 0.7 mg/dL (0.2-1.3) 01/20/17 04:38 AST 38 U/L (17-59) 01/20/17 04:38 ALT 45 U/L (21-72) 01/20/17 04:38 Alkaline Phosphatase 63 U/L (38-126) 01/20/17 04:38 Troponin I < 0.0120 ng/mL (0.00-0.120) 01/17/17 01:20 NT-Pro-B Natriuret Pep 329 pg/mL (0-450) 01/17/17 14:13 Total Protein 6.8 g/dL (6.3-8.3) 01/20/17 04:38 Albumin 3.8 g/dL (3.5-5.0) 01/20/17 04:38 Globulin 3.0 gm/dL (2.2-3.9) 01/20/17 04:38 Albumin/Globulin Ratio 1.3 (1.0-2.1) 01/20/17 04:38 Triglycerides 180 mg/dL (0-149) H 01/17/17 11:26 Cholesterol 137 mg/dL (0-199) 01/17/17 11:26 LDL Cholesterol Direct 92 mg/dL (0-129) 01/17/17 11:26 HDL Cholesterol 27 mg/dL (30-70) L 01/17/17 11:26 Procalcitonin < 0.05 NG/ML (0.19-0.49) L 01/16/17 17:29 Free T4 0.86 ng/dL (0.78-2.19) 01/16/17 17:29 Total T3 2.42 nmol/L (1.49-2.60) 01/16/17 17:29 TSH 3rd Generation 1.22 mIU/L (0.46-4.68) 01/16/17 17:29 Discharge Exam - Head Exam Head Exam: ATRAUMATIC, NORMAL INSPECTION, NORMOCEPHALIC Discharge Plan - Follow Up Plan Condition: STABLE Disposition: Trans to Other Acute Care Hosp Additional Instructions: Discharge to [facility] when bed availabe for CABG procedure per Dr. Sutherland. Accepting Dr. Jesus Alexander. <Rob Alfonso - Last Filed: 01/20/17 10:35> Provider - Provider Date of Admission: 01/18/17 17:16 Attending physician: Rob Alfonso DO Consults: Cardiology ~ Dr Sutherland Time Spent in preparation of Discharge (in minutes): 29 Hospital Course - Lab Results Lab Results: Most Recent Lab Values WBC 12.1 K/uL (4.8-10.8) H 01/20/17 04:38 RBC 5.60 Mil/uL (4.40-5.90) 01/20/17 04:38 Hgb 15.9 g/dL (12.0-18.0) 01/20/17 04:38 Hct 46.8 % (35.0-51.0) 01/20/17 04:38 MCV 83.5 fL (80.0-94.0) 01/20/17 04:38 MCH 28.4 pg (27.0-31.0) 01/20/17 04:38 MCHC 34.1 g/dL (33.0-37.0) 01/20/17 04:38 RDW 13.3 % (11.5-14.5) 01/20/17 04:38 Plt Count 222 K/uL (130-400) 01/20/17 04:38 MPV 8.1 fL (7.2-11.7) 01/20/17 04:38 Neut % (Auto) 60.7 % (50.0-75.0) 01/20/17 04:38 Lymph % (Auto) 29.8 % (20.0-40.0) 01/20/17 04:38 Emmons % (Auto) 6.1 % (0.0-10.0) 01/20/17 04:38 Eos % (Auto) 2.9 % (0.0-4.0) 01/20/17 04:38 Baso % (Auto) 0.5 % (0.0-2.0) 01/20/17 04:38 Neut # 7.3 K/uL (1.8-7.0) H 01/20/17 04:38 Lymph # 3.6 K/uL (1.0-4.3) 01/20/17 04:38 Emmons # 0.7 K/uL (0.0-0.8) 01/20/17 04:38 Eos # 0.3 K/uL (0.0-0.7) 01/20/17 04:38 Baso # 0.1 K/uL (0.0-0.2) 01/20/17 04:38 PT 11.8 SECONDS (9.7-12.2) 01/16/17 18:23 INR 1.0 01/16/17 18:23 APTT 32 SECONDS (21-34) 01/16/17 18:23 D-Dimer, Quantitative < 200 ng/mlDDU (0-243) 01/17/17 04:22 Sodium 135 mmol/L (132-148) 01/20/17 04:38 Potassium 3.8 mmol/L (3.6-5.2) 01/20/17 04:38 Chloride 99 mmol/L (98-107) 01/20/17 04:38 Carbon Dioxide 27 mmol/L (22-30) 01/20/17 04:38 Anion Gap 13 (10-20) 01/20/17 04:38 BUN 20 mg/dL (9-20) 01/20/17 04:38 Creatinine 1.1 MG/DL (0.8-1.5) 01/20/17 04:38 Est GFR ( Amer) > 60 01/20/17 04:38 Est GFR (Non-Af Amer) > 60 01/20/17 04:38 POC Glucose (mg/dL) 109 mg/dL (65-110) 01/20/17 06:15 Random Glucose 193 mg/dL (75-110) H 01/20/17 04:38 Hemoglobin A1c 6.6 % (4.2-6.5) H D 01/17/17 11:26 Calcium 8.2 mg/dl (8.6-10.4) L 01/20/17 04:38 Phosphorus 3.2 mg/dL (2.5-4.5) 01/20/17 04:38 Magnesium 2.3 mg/dL (1.6-2.3) 01/20/17 04:38 Total Bilirubin 0.7 mg/dL (0.2-1.3) 01/20/17 04:38 AST 38 U/L (17-59) 01/20/17 04:38 ALT 45 U/L (21-72) 01/20/17 04:38 Alkaline Phosphatase 63 U/L (38-126) 01/20/17 04:38 Troponin I < 0.0120 ng/mL (0.00-0.120) 01/17/17 01:20 NT-Pro-B Natriuret Pep 329 pg/mL (0-450) 01/17/17 14:13 Total Protein 6.8 g/dL (6.3-8.3) 01/20/17 04:38 Albumin 3.8 g/dL (3.5-5.0) 01/20/17 04:38 Globulin 3.0 gm/dL (2.2-3.9) 01/20/17 04:38 Albumin/Globulin Ratio 1.3 (1.0-2.1) 01/20/17 04:38 Triglycerides 180 mg/dL (0-149) H 01/17/17 11:26 Cholesterol 137 mg/dL (0-199) 01/17/17 11:26 LDL Cholesterol Direct 92 mg/dL (0-129) 01/17/17 11:26 HDL Cholesterol 27 mg/dL (30-70) L 01/17/17 11:26 Procalcitonin < 0.05 NG/ML (0.19-0.49) L 01/16/17 17:29 Free T4 0.86 ng/dL (0.78-2.19) 01/16/17 17:29 Total T3 2.42 nmol/L (1.49-2.60) 01/16/17 17:29 TSH 3rd Generation 1.22 mIU/L (0.46-4.68) 01/16/17 17:29 - Hospital Course Hospital Course: This is a 41 year old male with an extensive cardiac history including MD and HTN and DM and CAD and still is an active smoker. The patient came with substernal chest pain at the ER on 01/16 and after we discussed with the patient felt that he needed to be placed on theraputic levels of lovenox SC BID. His EKG in the ER showed what appeared to be old Q waves and also very poor R wave progression. There is a history of CAD from before and he was supposed to undergo surgical intervention but did not. The patient was also started on Statin and BB and BEBO-I He was initially not enthusiastic about staying in the hospital the next day because the pain had resolved and cardiac enzymes negative however he then had a stress test as well as cardiac cath - the results of which showed severe multi vessel disease. He was upset with all these findings however we had repeated long discussion with him. He is still a heavy smoker - even after the first heart attack. On 01/20 he was transffered to [facility] for further intervention. I wished him the best and reminded him that ultimately he needs to stop smoking. Per the resident HPI "This is a 41 yo male with past medical hx of HTN, DM, CAD , HLD, MD presenting with chest pain x 2-3 days. Pain was getting worse in intensity and pain began radiating to jaw and left arm so that is why pt came in today. He rates it 6/10, similar to pain he has had in past when he had MD. He describes it as pressure sensation. Pain is constant. He had cardiac cath in past but did not have stent placed due to technical issue. He doesn't say anything makes it worse, but the medicine he got in ER has made it somewhat better. He denies fevers, chills, nausea vomiting, cough, dysuria, hematuria, abdominal pain, diarrhea, constipation, hematochezia." Discharge Exam - Eye Exam Eye Exam: EOMI, Normal appearance Pupil Exam: NORMAL ACCOMODATION - Respiratory Exam Respiratory Exam: Clear to PA & Lateral, NORMAL BREATHING PATTERN, UNREMARKABLE - Cardiovascular Exam Cardiovascular Exam: REGULAR RHYTHM - GI/Abdominal Exam GI & Abdominal Exam: Normal Bowel Sounds, Unremarkable - Neurological Exam Neurological exam: Alert, Oriented x3 - Psychiatric Exam Psychiatric exam: Depressed - Skin Skin Exam: Normal Color, Warm
[2017-01-20] MEDS: (Novolin R) Insulin Human Regular 100 units/ml vial SC SCH (08:07)
--- NOTE | 2017-01-20 10:01 | CARD ---
APPROVED REPORT EXAM: Two-dimensional and M-mode echocardiogram with Doppler and color Doppler. Other Information Quality : GoodRhythm : NSR INDICATION CAD Chest Pain RISK FACTORS Hypertension Diabetes M-Mode DIMENSIONS RVDd2.26 (2.1-3.2cm)Left Atrium (MM)4.80 (2.5-4.0cm) IVSd1.48 (0.7-1.1cm)Aortic Root3.40 (2.2-3.7cm) LVDd5.51 (4.0-5.6cm)Aortic Cusp Exc.2.07 (1.5-2.0cm) PWd1.52 (0.7-1.1cm)FS (%) 25 % LVDs4.14 (2.0-3.8cm)LVEF (%)49 (>50%) Aortic Valve AoV Peak Lgktwuqo29.1cm/Kirby Peak GR.4mmHg Mitral Valve MV E Feexepru03.6cm/sMV A Hxmomkdi40.8cm/sE/A ratio0.9 TDI E/Lateral E'0.0E/Medial E'0.0 Tricuspid Valve TR Peak Mfncbizr711pm/sTR Peak Gr.0nwZmBROC02axCh LEFT VENTRICLE The left ventricle is normal size. There is normal left ventricular wall thickness. The left ventricular function is normal. The left ventricular ejection fraction is 55-60% THERE IS MILD TO MODERATE APICAL HYPOKINESIS Transmitral Doppler flow pattern is Grade I-abnormal relaxation pattern. No left ventricle thrombus noted on this study. There is no ventricular septal defect visualized. There is no left ventricular aneurysm. There is no mass noted in the left ventricle. RIGHT VENTRICLE The right ventricle is normal size. There is normal right ventricular wall thickness. The right ventricular systolic function is normal. ATRIA The left atrium is moderately dilated. The right atrium size is normal. The interatrial septum is intact with no evidence for an atrial septal defect. AORTIC VALVE The aortic valve is normal in structure and function. No aortic regurgitation is present. There is no aortic valvular stenosis. There is no aortic valvular vegetation. MITRAL VALVE The mitral valve is normal in structure and function. There is no evidence of mitral valve prolapse. There is no mitral valve stenosis. There is no mitral valve regurgitation noted. TRICUSPID VALVE The tricuspid valve is normal in structure and function. There is no tricuspid valve regurgitation noted. There is no tricuspid valve prolapse or vegetation. There is no tricuspid valve stenosis. PULMONIC VALVE The pulmonary valve is normal in structure and function. There is no pulmonic valvular regurgitation. There is no pulmonic valvular stenosis. GREAT VESSELS The aortic root is normal in size. The ascending aorta is normal in size. The pulmonary artery is normal. The IVC is normal in size and collapses >50% with inspiration. PERICARDIAL EFFUSION The pericardium appears normal. There is no pleural effusion. <Conclusion> The left ventricular ejection fraction is 55-60% THERE IS MILD TO MODERATE APICAL HYPOKINESIS Transmitral Doppler flow pattern is Grade I-abnormal relaxation pattern. The left atrium is moderately dilated.
[2017-01-20 10:09] VITALS: BP 136/90
[2017-01-20 10:16] VITALS: RESP 22; TEMP 98.2; O2SAT 97
[2017-01-20 10:22] VITALS: PULSE 68
--- NOTE | 2017-01-20 13:04 | CARD ---
APPROVED REPORT Protocol: LEXISCAN Test Type: LEXISCAN STRESS Test Indications: CP Target HR: 181 bpm Resting ECG: normal Resting Heart Rate: 59 bpm Resting Blood Pressure: 122/80mmHg submaximum (85%): 154 bpm TEST SUMMARY PREINFSNHYPERV.43:070.00..923889/80.0. INFUSIONDOSE 100:300.00.01.059/.0. NMMMBHXIA45:040.00..213402/80.0. PROCEDURE Pharmacologic stress testing was performed using 0.4mg per 5ml of regadenoson given intravenously over 7-10 seconds. Reversal agent aminophyline 125 mg, given intravenously for Headache. POST EXERCISE Reason for Termination: Protocol Completed Target HR: No Max HR: 59 bpm 44% of Maximum Predicted HR: 181 bpm Exercise duration: 00:30 min:sec, 0 Stage Exercise capacity: 1.0METs Max Blood Pressure: 122/80mmHg Blood Pressure response to exercise: normal resting BP - appropriate response Heart Rate response to exercise: appropriate Chest Pain: No, none Angina index: 0 Arrhythmia: No, none ST Change: No, none Deviation: 0 mm INTERPRETATION Stress EKG Conclusion: AWAIT NUCLEAR IMAGES EXAM: Myocardial Perfusion REST/STRESS Imaging Protocol The imaging protocol used to acquire images was Rest Tc-99m/stress Tc-99m 1 day Rest Spect myocardial perfusion imaging was performed in supine position 41 minutes following the injection of 13.2 mCi of Tc-99 Myoview. Gated Spect was performed 39 minutes after intravenous 32 mCi Tc-99 Myoview injection. The images were gated to evaluate regional wall motion and calculate ventricular ejection fraction.Images were reconstructed using backfilter projection method in short horizontal and verticle long axis. Spect slices were generated. RESTING DATA IPV769.00ml ESV67.00mlMyocardial Yoqu522.00g EF55.00% STRESS DATA AIB428.00ml ESV80.00mlMyocardial Tpsx701.00g EF49.00% Regional WT score at stress:1.00 Regional WM score at stress:0.00 Summed WT score at stress:14.00 Summed WM score at stress:11.00 LV Perf. Quant 17 Seg. SSS10.00 17 Seg. SRS2.00 17 Seg. SDS8.00 Stress Defect Extent (% LAD)13.80Rest Defect Extent (% LAD)0.00Rev. Defect Extent (% LAD)13.80 Stress Defect Extent (% LCX)43.80Rest Defect Extent (% LCX)30.00Rev. Defect Extent (% LCX)42.50 Stress Defect Extent (% RCA)3.30Rest Defect Extent (% RCA)0.00Rev. Defect Extent (% RCA)3.30 Stress Defect Extent (% NARESH)22.80Rest Defect Extent (% NARESH)8.70Rev. Defect Extent (% NARESH)22.40 Other Information Quality:Excellent IMPRESSION Abnormal Myocardial Perfusion exercise stress study Global LV Function: Normal Stress Test Summary: Nondiagnostic LV Perfusion Summary: Abnormal Left Ventricle LV Size/Shape: The left ventricle is normal size. LV Thickness: There is normal left ventricular wall thickness. LV Function:Left ventricle systolic function is normal. The Ejection Fraction is 50-55%. Regional Wall Motion:There is normal left ventricular wall motion. Metabolism/Perfusion Reversible/Irreversible: There is a medium reversible perfusion/metabolism defect in the Apical inferior wall. There is a medium reversible perfusion/metabolism defect in the Apical anterior wall. There is a medium reversible perfusion/metabolism defect in the Apical lateral wall. Conclusion 1. Pharmacologically imnduced ischemia of multiple portions of the apical segment of the left ventricle. 2. Left ventricular function at the lower limits of normal.
--- NOTE | 2017-01-21 19:49 | CARDCATH ---
PROCEDURE DATE: 01/19/2017 PROCEDURES: 1. Left heart catheterization. 2. Coronary angiogram. 3. Abdominal and bilateral iliac angiogram. CLINICAL INDICATIONS: 1. Angina. 2. Coronary artery disease. 3. Hypertension. 4. Diabetes. 5. Obesity. 6. Abnormal stress test. PERFORMING PHYSICIAN: Dr. Gregorio Sutherland. DESCRIPTION OF PROCEDURE: After informed consent, patient was prepped and draped in the usual steril e fashion and 2% lidocaine was given in the right groin for local anesthesia. Using micropuncture te chnique, 6-Taiwanese sheath was introduced into right common femoral artery. Using the usual diagnostic catheters, left heart catheterization, coronary angiogram and abdominal aortogram with runoff was pe rformed. FINDINGS: 1. Left main coronary artery is patent. 2. Proximal LAD is patent. Diagonal branches are patent. However, mid LAD is 100% occluded. There are left to left collaterals visible. 3. Left circumflex is patent. However, small obtuse marginal 3 branch has a 99% stenosis. 4. Right coronary artery is dominant. Mid right coronary artery has 80% stenosis. PDA has a 90% pr oximal stenosis. Mid PDA has 70% stenosis. 5. LV ejection fraction is approximately 50%. There is anterior and apical wall hypokinesis. EDP i s 22. No gradient across the aortic valve. 6. Abdominal aortogram and bilateral lower extremity runoff was normal. IMPRESSION: 1. Triple vessel disease. Left anterior descending is totally occluded. 2. Mildly reduced left ventricular systolic function. 3. Abdominal angiogram and bilateral iliac angiogram are normal. RECOMMENDATIONS: Recommend coronary artery bypass surgery. Gregorio Sutherland MD cc: [id number] TT: 01/21/2017 19:49:34 ln
--- NOTE | 2017-01-21 21:31 | CARD ---
APPROVED REPORT EKG Measurement Heart [id number] [place] [id number] <Conclusion> Normal sinus rhythm Left axis deviation Abnormal ECG
--- NOTE | 2017-01-21 21:40 | CARD ---
APPROVED REPORT EKG Measurement Heart [id number] [place] [id number] <Conclusion> Normal sinus rhythm Left axis deviation poor r wave progression Abnormal ECG
--- NOTE | 2017-01-30 07:32 | CARD ---
APPROVED REPORT EKG Measurement Heart [id number] W[place] 182P49 [id number] <Conclusion> Normal sinus rhythm Left axis deviation Cannot rule out Anterior infarct, age undetermined Abnormal ECG
== END 2017-01-20 12:03 | disposition short-term general hospital (02) | DRG 125 ==
LOC: C.ER 11:52 → C.9E 14:49 → C.5T 18:28 → OBSVTOIN 01-18 17:16 → C.6T 01-19 06:46
PROVIDERS: ADMIT Hospitalist; ATTEND Hospitalist
PROC: 4A023N7 Measurement of Cardiac Sampling and Pressure, Left Heart, Percutaneous Approach (ICD-10-PCS; principal; 2017-01-20)
PROC: B2111ZZ Fluoroscopy of Multiple Coronary Arteries using Low Osmolar Contrast (ICD-10-PCS; 2017-01-20)
PROC: B2131ZZ Fluoroscopy of Multiple Coronary Artery Bypass Grafts using Low Osmolar Contrast (ICD-10-PCS; 2017-01-20)
DX: I25.119 Atherosclerotic heart disease of native coronary artery with unspecified angina pectoris (principal); I25.82 Chronic total occlusion of coronary artery; J44.9 Chronic obstructive pulmonary disease, unspecified; I10 Essential (primary) hypertension; E11.9 Type 2 diabetes mellitus without complications; E66.9 Obesity, unspecified; E78.5 Hyperlipidemia, unspecified; F17.210 Nicotine dependence, cigarettes, uncomplicated; F32.9 Major depressive disorder, single episode, unspecified; F41.9 Anxiety disorder, unspecified; Z68.36 Body mass index [BMI] 36.0-36.9, adult; Z79.4 Long term (current) use of insulin

== ENCOUNTER 2017-03-07 22:49 | Emergency (ER) | payer OTHER ==
[2017-03-07 22:50] VITALS: BMI 38.4
--- NOTE | 2017-03-07 23:40 | C.PDOC ---
History Of Present Illness 41 year old male with a Hx of OK 2 years ago and CABG in January presents to the ER with elevated blood pressure. Patient states since his operation he has been at home and has been on aspirin and tenormin for his blood pressure. Patient states his normal diastolic pressure is never over 90; however, several times today he notes that his diastolic pressure has been over 100. Patient reports the last time he took his blood pressure it was 150/110, which prompted the visit. Patient complains of a mild intermittent headache; denies vision change, chest pain, or SOB. Time Seen by Provider: 03/07/17 23:25 Chief Complaint (Nursing): High Blood Pressure History Per: Patient History/Exam Limitations: no limitations Onset/Duration Of Symptoms: Hrs Current Symptoms Are (Timing): Still Present Associated Symptoms: Headache. denies: Chest Pain, Dyspnea, Dizziness Quality Of Symptoms: Asymptomatic Exacerbating Factor(s): Pos: None Recent travel outside of the [place]: No Past Medical History Reviewed: Historical Data, Nursing Documentation, Vital Signs Vital Signs: Last Vital Signs Temp 98.2 F 03/07/17 23:30 Pulse 75 03/07/17 23:30 Resp 20 03/07/17 23:30 BP 120/74 03/07/17 23:30 Pulse Ox 98 03/07/17 23:43 - Medical History PMH: Anxiety, Asthma, CAD, Depression, HTN, Hypercholesterolemia Surgical History: CABG (6 weeks ago) - [facility] Procedures CORONAR ARTERIOGR-2 CATH (03/12/15) CORONARY ARTERIOGRAM NEC (03/16/15) FLUOROSCOPY OF MULT COR A GRAFT USING L OSM CONTRAST (01/18/17) FLUOROSCOPY OF MULT COR ART USING L OSM CONTRAST (01/18/17) LEFT HEART CARDIAC CATH (03/12/15) LT HEART ANGIOCARDIOGRAM (03/12/15) MEASURE OF CARDIAC SAMPL & PRESSURE, L HEART, PERC APPROACH (01/18/17) Family History: States: Unknown Family Hx - Social History Hx Tobacco Use: Yes (half pack daily) Hx Alcohol Use: No Hx Substance Use: No - Immunization History Hx Tetanus Toxoid Vaccination: No Hx Influenza Vaccination: Yes Hx Pneumococcal Vaccination: Yes Review Of Systems Eyes: Negative for: Vision Change Cardiovascular: Negative for: Chest Pain, Palpitations Respiratory: Negative for: Shortness of Breath Neurological: Positive for: Headache Physical Exam - Physical Exam Appears: Non-toxic, No Acute Distress, Other (Appears older than stated age) Skin: Normal Color, Warm, Dry Head: Atraumatic, Normacephalic Oral Mucosa: Moist Chest: Symmetrical, No Tenderness Cardiovascular: Rhythm Regular, No Murmur Respiratory: Normal Breath Sounds, No Rales, No Rhonchi, No Wheezing Gastrointestinal/Abdominal: Soft, No Tenderness Extremity: Normal ROM, No Pedal Edema Neurological/Psych: Oriented x3, Normal Speech, Normal Cognition ED Course And Treatment - Laboratory Results Result Diagrams: 03/07/17 23:42 03/07/17 23:42 Lab Interpretation: No Acute Changes ECG: Interpreted By Me ECG Rhythm: Sinus Rhythm (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 Reevaluation Time: 00:19 Reassessment Condition: Improved (BP 120/74. Patient remains asymptomatic) Disposition Counseled Patient/Family Regarding: Studies Performed, Diagnosis, Need For Followup - Disposition Referrals: Elizabeth Scott MD [Medical Doctor] - Disposition: HOME/ ROUTINE Disposition Time: 00:20 Condition: IMPROVED Instructions: DASH Eating Plan (ED), Hypertension (ED) - Clinical Impression Clinical Impression: Hypertension - Scribe Statement The provider has reviewed the documentation as recorded by the Scribjohn Davidson All medical record entries made by the Scribe were at my direction and personally dictated by me. I have reviewed the chart and agree that the record accurately reflects my personal performance of the history, physical exam, medical decision making, and the department course for this patient. I have also personally directed, reviewed, and agree with the discharge instructions and disposition.
[2017-03-07 23:44] VITALS: RESP 20
[2017-03-07 23:45] LABS: BASO # 0.2 K/uL (0.0-0.2); BASO % 1.4 % (0.0-2.0); EOS # 0.6 K/uL (0.0-0.7); EOS % 5.3 % (0.0-4.0); HEMOGLOBIN 14.3 g/dL (12.0-18.0); LYMPH # 3.2 K/uL (1.0-4.3); LYMPH % 28.2 % (20.0-40.0); MEAN CELL VOLUME 84.5 fL (80.0-94.0); MEAN CORPUSCULAR HEMOGLOBIN 27.8 pg (27.0-31.0); MEAN PLATELET VOLUME 7.7 fL (7.2-11.7); MONO % 9.3 % (0.0-10.0); NEUT # 6.3 K/uL (1.8-7.0); NEUT % 55.8 % (50.0-75.0); NRBC % 0.2 % (0.0-2.0); RBC 5.14 Mil/uL (4.40-5.90); RED CELL DISTRIBUTION WIDTH 13.8 % (11.5-14.5); WHITE BLOOD COUNT 11.3 K/uL (4.8-10.8)
[2017-03-07 23:53] LABS: ALBUMIN 3.8 g/dL (3.5-5.0)
[2017-03-07 23:55] LABS: GFR AFRICAN-AMERICAN > 60; GFR NON-AFRICAN AMERICAN > 60
[2017-03-07 23:56] LABS: ALB/GLOB RATIO 1.1 (1.0-2.1); ALT/SGPT 33 U/L (21-72); AST/SGOT 22 U/L (17-59); BLOOD UREA NITROGEN 12 mg/dL (9-20)
[2017-03-07 23:57] LABS: CALCIUM 9.6 mg/dl (8.6-10.4)
[2017-03-08 00:55] VITALS: BP 126/78; PULSE 89; TEMP 97.5; O2SAT 99
--- NOTE | 2017-03-08 14:37 | CARD ---
APPROVED REPORT EKG Measurement Heart [id number] ID [id number] <Conclusion> Normal sinus rhythm with sinus arrhythmia
== END 2017-03-08 00:58 | disposition home or self-care (01) ==
LOC: C.ER 22:49
DX: I10 Essential (primary) hypertension (principal); Z87.891 Personal history of nicotine dependence

== ENCOUNTER 2017-04-21 10:17 | Emergency (ER) | payer OTHER ==
[2017-04-21 10:18] VITALS: BMI 38.4
[2017-04-21 10:30] VITALS: TEMP 98.1
--- NOTE | 2017-04-21 12:53 | RAD ---
PROCEDURE: Left Hip with pelvis X-ray Radiographs. HISTORY: left hip and thigh pain with occ numbness COMPARISON: None. FINDINGS: BONES: Normal. No fracture. JOINTS: Bilateral sacroiliac and hip joints appear unremarkable. SOFT TISSUES: Normal. OTHER FINDINGS: Pubic symphysis appears intact IMPRESSION: Normal left hip and pelvis radiographs.
--- NOTE | 2017-04-21 13:27 | C.PDOC ---
History Of Present Illness 41 y/o male with cad, s/p recent cabg in january 2017, presents to ED today with left lateral thigh pain for 3 months. pt sts pain is least when sitting in cross legged position. pt taking otc medication and sometimes percocet for pain , but says it is always present, sometimes radiates to hip, sometimes to knee. pt denies any chest pain or sob, denies any leg swelling. pt sts he occasionally has some numbness to lateral thigh. denies any tingling. pt sts for the last few days. he has a small area of redness to lateral left thigh. no fevers. Time Seen by Provider: 04/21/17 10:44 Chief Complaint (Nursing): Lower Extremity Problem/Injury History Per: Patient History/Exam Limitations: no limitations Onset/Duration Of Symptoms: Days (90+) Current Symptoms Are (Timing): Still Present Severity: Moderate Recent travel outside of the [place]: No Past Medical History Reviewed: Historical Data, Nursing Documentation, Vital Signs Vital Signs: Last Vital Signs Temp 98.1 F 04/21/17 10:26 Pulse 75 04/21/17 13:56 Resp 16 04/21/17 13:56 BP 136/79 04/21/17 13:56 Pulse Ox 99 04/21/17 22:11 - Medical History PMH: Anxiety, Asthma, CAD, Depression, HTN, Hypercholesterolemia Denies: Chronic Kidney Disease Surgical History: CABG (january 2017) - [facility] CORONAR ARTERIOGR-2 CATH (03/12/15) CORONARY ARTERIOGRAM NEC (03/16/15) FLUOROSCOPY OF MULT COR A GRAFT USING L OSM CONTRAST (01/18/17) FLUOROSCOPY OF MULT COR ART USING L OSM CONTRAST (01/18/17) LEFT HEART CARDIAC CATH (03/12/15) LT HEART ANGIOCARDIOGRAM (03/12/15) MEASURE OF CARDIAC SAMPL & PRESSURE, L HEART, PERC APPROACH (01/18/17) Family History: States: Unknown Family Hx - Social History Hx Tobacco Use: Yes (half pack daily) Hx Alcohol Use: No Hx Substance Use: No - Immunization History Hx Tetanus Toxoid Vaccination: No Hx Influenza Vaccination: Yes Hx Pneumococcal Vaccination: Yes Review Of Systems Constitutional: Negative for: Fever, Chills Cardiovascular: Negative for: Chest Pain, Palpitations, Light Headedness Respiratory: Negative for: Cough, Shortness of Breath, SOB with Excertion, Pleuritic Pain Musculoskeletal: Positive for: Other (lef tthigh pain) Neurological: Positive for: Numbness (occasional to left lateral thigh). Negative for: Weakness Physical Exam - Physical Exam Appears: Non-toxic, No Acute Distress Skin: Normal Color, Warm, Dry Head: Atraumatic, Normacephalic Gastrointestinal/Abdominal: Soft, No Tenderness Extremity: Normal ROM, Tenderness (lateral left thigh. no swelling, no erythema , no warmth. 2 cm area of mild induration, no fluctuance.), No Pedal Edema, No Calf Tenderness, No Swelling, Other (from of left hip, knee and ankle. ) Pulses: Left Femoral: Normal, Right Femoral: Normal, Left Dorsalis Pedis: Normal , Right Dorsalis Pedis: Normal Neurological/Psych: Oriented x3, Normal Speech, Normal Cognition, Normal Motor, Normal Sensation ED Course And Treatment O2 Sat by Pulse Oximetry: 99 Medical Decision Making Medical Decision Making: pt with no acute fx on hip or femur noted. ? lucency on left femoral head. pt to be discharged has f/u with pmd this sun, and advised to see ortho. Disposition Counseled Patient/Family Regarding: Studies Performed, Diagnosis, Need For Followup - Disposition Referrals: Tremaine Menchaca MD [Staff Provider] - Disposition: HOME/ ROUTINE Disposition Time: 13:27 Condition: STABLE Additional Instructions: Follow up with your PMD on Sun as scheduled. Follow up with Dr Menchaca, orthopedist. Call for appointment. Recommend warm compress to red area on left thigh. Return to ER for any worse symptoms. Forms: [facility] ([place]), General Discharge Instructions - Clinical Impression Clinical Impression: Pain in left thigh
[2017-04-21] MEDS ORDERED: Acetaminophen-Codeine 300/30 mg Tab PO ONE (13:33)
[2017-04-21] MEDS ORDERED: Acetaminophen-Codeine 300/30 mg Tab PO STA (13:51)
[2017-04-21 13:56] VITALS: BP 136/79; PULSE 75; RESP 16
--- NOTE | 2017-04-21 17:13 | RAD ---
PROCEDURE: Left Femur Radiographs. HISTORY: lateral thigh pain COMPARISON: None. TECHNIQUE: AP and Lateral Radiographs of the left femur. FINDINGS: FEMUR: No fracture is appreciated or suspicious lytic or blastic change or small bone island is seen at the medial distal metaphysis. SOFT TISSUES: Normal. OTHER FINDINGS: None. IMPRESSION: Unremarkable radiographs of the left femur.
[2017-04-21 22:06] VITALS: O2SAT 99
== END 2017-04-21 13:56 | disposition home or self-care (01) ==
LOC: C.ER 10:17
DX: M79.652 Pain in left thigh (principal)